=== PATIENT | male | born 1985 | race Caucasian/White ===

== ENCOUNTER 2021-09-29 22:00 | Inpatient (IN) | payer MEDICARE, MEDICAID, SELFPAY ==
[2021-09-29 22:02] VITALS: BP 136/87; PULSE 81; RESP 16; TEMP 36.7; O2SAT 94; BMI 23.8
--- NOTE | 2021-09-29 22:39 | XRR_ITS ---
PROCEDURE INFORMATION: Exam: XR Chest Exam date and time: 09/29/2021 10:39 PM Age: 36 years old Clinical indication: Patient HX: HX of sarcoidosis C/O malaise and SOB; Additional info: SOB HX sarcoidosis TECHNIQUE: Imaging protocol: XR of the chest. Views: 1 view. COMPARISON: No relevant prior studies available. FINDINGS: Lungs: Mild nonspecific diffuse coarsening of the interstitial markings. Pleural-based 2.5 cm density along the left lateral chest wall. No other focal pulmonary abnormality demonstrated. Pleural spaces: No pleural effusion. No pneumothorax. Heart/Mediastinum: No cardiomegaly. Bones/joints: Unremarkable. XR/XR chest 1V portable [id number] IMPRESSION: 1. Mild nonspecific diffuse coarsening of the interstitial markings. This may represent interstitial edema versus inflammation versus infection. 2. Pleural-based 2.5 cm density along the left lateral chest wall. This may represent a focal infiltrate versus a pleural based mass. Consider CT of the chest for further evaluation. 3. No other focal pulmonary abnormality demonstrated.
[2021-09-29 22:48] LABS: Basophils % 0.7 %; Eosinophils # 0.3 10^3/uL (0.0-0.8); Hematocrit 50.1 % (42.0-52.0); Hemoglobin 16.4 g/dL (11.7-16.6); Lymphocytes # 0.5 10^3/uL (0.8-4.8); Lymphocytes % 8.9 %; Mean Corpuscular HGB Conc 32.7 g/dL (30.0-36.0); Mean Corpuscular Hemoglobin 29.1 pg (28.0-34.0); Mean Corpuscular Volume 88.8 fl (80-94); Mean Platelet Volume 11.6 fL (7.4-10.4); Monocytes # 0.8 10^3/uL (0.2-0.9); Monocytes % 15.5 %; Neutrophils # 3.78 10^3/uL (1.8-7.7); Neutrophils % 69.7 %; Nucleated Red Blood Cells % 0 %; Platelet Count 203 10^3/cmm (130-400); Red Blood Count 5.64 10^6/uL (4.1-5.3); Red Cell Distribution Width 14.3 % (12.1-15.1); White Blood Count 5.4 10^3/uL (4.0-10.0)
[2021-09-29] MEDS: sodium chloride 0.9% 1,000 ML 999 ML IV ×2 (23:00→23:51)
[2021-09-29 23:05] LABS: Alanine Aminotransferase 30 U/L (0-41); Alkaline Phosphatase 311 IU/L (40-130); Anion Gap 17.6 (5-19); Aspartate Amino Transferase 36 U/L (0-40); Blood Urea Nitrogen 34 mg/dL (6-20); C Reactive Protein 22.5 mg/L (0.0-4.9); Calcium 13.3 mg/dL (8.5-10.5); Carbon Dioxide 26 mmol/L (22-29); Chloride 93 mmol/L (98-107); Creatine Phosphokinase 44 U/L (39-308); Globulin 3.5 g/dL (1.3-4.6); Glomerular Filtration Rate 23.2 mL/min (90-130); Glucose 100 mg/dL (65-115); Magnesium 1.7 mg/dL (1.7-2.3); Osmolality Calculated 284 mOsm/kg (285-295); Potassium 3.6 mmol/L (3.5-5.1); Sodium 133 mmol/L (136-145); Total Bilirubin 0.5 mg/dL (0.15-1.2); Total Protein 7.5 g/dL (6.6-8.7)
[2021-09-29 23:06] LABS: Erythrocyte Sedimentation Rate 23 mm/hr (0-10); Lactate (Lactic Acid level) 1.5 mmol/L (0.5-2.2)
[2021-09-29 23:51] LABS: Add Urine Microscopic? YES; Bilirubin Urine Neg (Negative); Blood Urine 2+ (Negative); Glucose Urine UA Norm (Normal); Ketones Urine Negative (Negative); Leukocyte Esterase Urine 2+ (Negative); Nitrate Urine Negative (Negative); Protein Urine 1+ (Negative); Specific Gravity, Urine 1.015 (1.005-1.030); Urine Appearance SL Hazy (CLEAR); Urine Color Yellow (Yellow); Urobilinogen Urine Norm (Negative); pH Urine 6.5 (5-7)
[2021-09-29] MEDS: heparin 5,000 unit/mL INJ 1 mL 5000 UNIT SUBCUT (23:52)
[2021-09-29 23:58] LABS: Add Urine Culture? Yes; Bacteria Urine 2+ /hpf; RBC Urine 15-25 /hpf (0-2); Squamous Epithelial Cell Urine 0-4 /hpf (0-5); WBC Urine 40-55 /hpf (0-5)
[2021-09-29 23:59] VITALS: BP 125/89; PULSE 79; RESP 18; O2SAT 98
[2021-09-30] VITALS (10 sets, daily range): BP systolic 112–144; BP diastolic 76–99; PULSE 71–93; RESP 13–16; TEMP 36.4; O2SAT 94–98
[2021-09-30] MEDS: sodium chloride 0.9% 1,000 ML 75 ML IV (00:24)
--- NOTE | 2021-09-30 01:42 | PM.HP ---
Providers/Chief Complaint Admitting Physician: Josy Torres Primary Care Provider: Aaliyah Hall Chief Complaint: NAUSEA History of Present Illness 36-year-old male with a past medical history significant for drug abuse, alcoholism now 38 days sober, sarcoidosis and chronic stage 3 kidney disease with a baseline creatinine around 2 was presented to the hospital with 3 day history of nausea and vomiting. Patient stated he has not been able to keep anything down. Denied fevers however noted chills. Was seen earlier outpatient clinic where he had COVID-19 test done which per patient was negative. Denies any respiratory distress or chest pain. Does not follow with PCP or pulmonary. Does have an upcoming appointment with nephrology. Has been on steroids in the past for sarcoidosis however no current chronic meds. Upon arrival to emergency room his laboratory workup showed a WBC of 5.4, hemoglobin 16.4, hematocrit 50.1 and a platelet count of 203. Sodium 133, potassium 3.6, chloride 93, bicarb 26, BUN 34 and a creatinine of 3.1. Calcium 13.3. Chest xray showed Mild nonspecific diffuse coarsening of the interstitial markings and pleural-based 2.5 cm density along the left lateral chest wall. This may represent a focal infiltrate versus a pleural based mass. Review of Systems Narrative: Comprehensive review of all systems found to be negative other than pertinent findings noted in HPI Medications/Allergies Home Medications Medication Instructions Recorded Confirmed Last Taken Type No Known Home Medications 07/12/20 07/12/20 Unknown History Allergies Allergy/AdvReac Type Severity Reaction Status Date / Time morphine Allergy Unknown Unknown Verified 07/12/20 11:09 PFSH Acute PFSH: Medical History (Updated 09/30/21 @ 03:35 by Josy Torres MD) Alcoholism Drug abuse No pertinent family history Sarcoidosis Surgical History (Updated 09/30/21 @ 03:35 by Josy Torres MD) H/O cervical spine surgery Vitals/I&O/Wt Last Vital Signs Temp 98.0 F 09/29/21 22:02 Pulse 79 09/29/21 23:59 Resp 18 09/29/21 23:59 BP 125/89 09/29/21 23:59 Pulse Ox 98 09/29/21 23:59 09/29/21 09/29/21 09/30/21 14:59 22:59 06:59 Intake Total 849.15 / 849.15 Balance 849.15 / 849.15 Weight last 48 hrs Weight 64.864 kg Physical Exam Narrative: General-Alert awake and oriented HEENT -grossly unremarkable CVS -regular rate rhythm Chest- clear to auscultation bilaterally Abdomen-soft nontender nondistended Extremities-no edema Data : 09/29/21 22:14 09/29/21 22:14 A&P Assessment and plan (1) Acute worsening of stage 3 chronic kidney disease: Status: Acute (2) Sarcoidosis: Status: Acute (3) Nausea & vomiting: Status: Acute (4) Abnormal finding on urinalysis: Status: Acute (5) Hypercalcemia due to granulomatous disease: Status: Acute Plan Nausea/Vomiting Possible viral gastroenteritis Zofran PRN CLD IVF with NS at 125 cc/hr May consider abdominal imaging if worsening symptoms Will check COVID19 PCR Acute on chronic stage 3 kidney disease Due to Sarcoidosis plus component of pre-renal Baseline Creatinine around 2.0 per patient Increased to 3.0 Renal dosing of meds Repeat BMP in am IVF Renal US ordered Hypercalcemia / hyperphosphatemia Related to Sarcoidosis IVF Repeat Calcium in am Prednisone 60 mg PO daily May change to IV if not able to tolerate Abnormal UA Rocephin 1g IV daily Follow up on culture Sarcoidosis with suspected acute flare Steroids as noted above Consult with rheumatology in am Will consider CT chest and pulmonary consult Hx of Alcoholism 38 days sober per patient Monitor for withdrawals Hx of Drug Abuse On suboxone No recent use per patient DVT prophylaxis Heparin 5000 units q12hr Attestations Medical Necessity Statement*: Willl Require over 2 midnight stay in hospital for evaluation and treatment Time Spent in Patient Care: Greater than 35 minutes (>than 50% of time spent in counselling and/or direct pt care on unit). Coding Level of Care Code Acute Safety Professional for Chg Fwd Diagnoses Acute worsening of stage 3 chronic kidney disease N18.30 Sarcoidosis D86.9 Nausea & vomiting R11.2 Abnormal finding on urinalysis R82.90 Hypercalcemia due to granulomatous disease E83.52
--- NOTE | 2021-09-30 02:24 | ED_ITS ---
HPI - Nausea/Vomiting/Diarrhea General: Chief complaint: ER Hold Stated complaint: NAUSEA Time Seen by Provider: 09/29/21 22:05 History of Present Illness: 36-year-old male who has been sick for several days now. He tested negative for Covid last week. He has a history of sarcoidosis. His main complaint is that of vomiting and upset stomach. He is not been able to hold much food or drink down for the last several days. He recently quit drinking alcohol, 38 days ago, and wonders if some of this could be alcohol withdrawal. Associated nausea: Yes Associated symtoms: Reports headache(s) and nausea; Denies change in vision, chest pain or palpitations Review of Systems Const: Denies: fever(s), chills or body aches Eyes: Denies: change in vision ENMT: Denies: throat pain Card: Denies: chest pain or palpitations Resp: Denies: dyspnea GI: Reports: abdominal pain, nausea and vomiting; Denies: diarrhea : Reports: difficulty urinating Musc: Reports: back pain Skin/Breast: Denies: rash Neuro: Reports: headache(s) Physical Exam HENMT: COMMON NORMALS: normocephalic and Normal external nose present HEAD & SCALP: normocephalic FACE & SINUS: normal facial exam NOSE: Normal external nose present Eye: COMMON NORMALS: Equal, round and reactive pupils present, EOMs intact bilaterally and no scleral icterus PUPIL: Yes Equal, round and reactive pupils present Cardio: COMMON NORMALS: regular rate and regular rhythm RATE: regular rate RHYTHM: regular rhythm GI: COMMON NORMALS: Normal to inspection, nondistended, normoactive bowel sounds present, Soft to palpation and non-tender PALPATION: Yes Soft to palpation Extremity: COMMON NORMALS: normal to inspection Neuro: ALE COMA SCALE: document GCS findings Ale coma scale eye opening: Spontaneous [place] coma scale verbal response: Orientated [place] coma scale motor response: Obey commands [place] coma scale total score: 15 Course Vital Signs: Vital signs: Vital Signs Temperature 98.0 F 09/29/21 22:02 Pulse Rate 79 09/29/21 23:59 Respiratory Rate 18 09/29/21 23:59 Blood Pressure 125/89 09/29/21 23:59 Pulse Oximetry 98 09/29/21 23:59 MDM - Nausea/Vomiting/Diarrhea Medical Decision Making 36-year-old male with significant increase in creatinine over baseline. CBC is normal. His white blood cell count is 5.4. Hemoglobin is 16.4. He will be admitted for acute kidney injury. Lab Data : 09/29/21 22:14 09/29/21 22:14 Radiology Impressions Chest X-Ray 09/29/21 22:39 IMPRESSION: 1. Mild nonspecific diffuse coarsening of the interstitial markings. This may represent interstitial edema versus inflammation versus infection. 2. Pleural-based 2.5 cm density along the left lateral chest wall. This may represent a focal infiltrate versus a pleural based mass. Consider CT of the chest for further evaluation. 3. No other focal pulmonary abnormality demonstrated. Laboratory Results WBC 5.4 10^3/uL (4.0-10.0) 09/29/21 22:14 RBC 5.64 10^6/uL (4.1-5.3) H 09/29/21 22:14 Hgb 16.4 g/dL (11.7-16.6) 09/29/21 22:14 Hct 50.1 % (42.0-52.0) 09/29/21 22:14 MCV 88.8 fl (80-94) 09/29/21 22:14 MCH 29.1 pg (28.0-34.0) 09/29/21 22:14 MCHC 32.7 g/dL (30.0-36.0) 09/29/21 22:14 RDW 14.3 % (12.1-15.1) 09/29/21 22:14 Plt Count 203 10^3/cmm (130-400) 09/29/21 22:14 MPV 11.6 fL (7.4-10.4) H 09/29/21 22:14 Neut % (Auto) 69.7 % 09/29/21 22:14 Lymph % (Auto) 8.9 % 09/29/21:14 [place] % (Auto) 15.5 % 09/29/21 22:14 Eos % (Auto) 5.0 % 09/29/21 22:14 Baso % (Auto) 0.7 % 09/29/21 22:14 Neut # (Auto) 3.78 10^3/uL (1.8-7.7) 09/29/21:14 Lymph # (Auto) 0.5 10^3/uL (0.8-4.8) L 09/29/21 22:14 [place] # (Auto) 0.8 10^3/uL (0.2-0.9) 09/29/21 22:14 Eos # (Auto) 0.3 10^3/uL (0.0-0.8) 09/29/21 22:14 Baso # (Auto) 0.0 10^3/uL (0.0-0.1) 09/29/21 22:14 Nucleated RBC % (auto) 0 % 09/29/21 22:14 Nucleated RBCs # 0.0 /100WBC 09/29/21 22:14 ESR 23 mm/hr (0-10) H 09/29/21 22:14 Sodium 133 mmol/L (136-145) L 09/29/21 22:14 Potassium 3.6 mmol/L (3.5-5.1) 09/29/21 22:14 Chloride 93 mmol/L (98-107) L 09/29/21 22:14 Carbon Dioxide 26 mmol/L (22-29) 09/29/21 22:14 Anion Gap 17.6 (5-19) 09/29/21 22:14 BUN 34 mg/dL (6-20) H 09/29/21 22:14 Creatinine 3.1 mg/dL (0.7-1.2) H 09/29/21 22:14 GFR Calculation 23.2 mL/min (90-130) L 09/29/21 22:14 Glucose 100 mg/dL (65-115) 09/29/21 22:14 Calculated Osmolality 284 mOsm/kg (285-295) L 09/29/21 22:14 Lactate 1.5 mmol/L (0.5-2.2) 09/29/21 22:14 Calcium 13.3 mg/dL (8.5-10.5) H 09/29/21 22:14 Phosphorus 5.0 mg/dL (2.5-4.5) H 09/29/21 22:14 Magnesium 1.7 mg/dL (1.7-2.3) 09/29/21 22:14 Total Bilirubin 0.5 mg/dL (0.15-1.2) 09/29/21 22:14 AST 36 U/L (0-40) 09/29/21 22:14 ALT 30 U/L (0-41) 09/29/21 22:14 Alkaline Phosphatase 311 IU/L (40-130) H 09/29/21 22:14 Creatine Kinase 44 U/L (39-308) 09/29/21 22:14 C-Reactive Protein 22.5 mg/L (0.0-4.9) H 09/29/21 22:14 Total Protein 7.5 g/dL (6.6-8.7) 09/29/21 22:14 Albumin 4.0 g/dL (3.5-5.2) 09/29/21 22:14 Globulin 3.5 g/dL (1.3-4.6) 09/29/21 22:14 Procalcitonin 0.30 ng/mL (0-0.5) 09/29/21 22:14 Urine Color Yellow (Yellow) 09/29/21 23:33 Urine Appearance Sl hazy (CLEAR) 09/29/21 23:33 Urine pH 6.5 (5-7) 09/29/21 23:33 Ur Specific [place] 1.015 (1.005-1.030) 09/29/21 23:33 Urine Protein 1+ (Negative) H 09/29/21 23:33 Urine Glucose (UA) Norm (Normal) 09/29/21 23:33 Urine Ketones Negative (Negative) 09/29/21 23:33 Urine Blood 2+ (Negative) H 09/29/21 23:33 Urine Nitrate Negative (Negative) 09/29/21 23:33 Urine Bilirubin Neg (Negative) 09/29/21 23:33 Urine Urobilinogen Norm mg/dL (Negative) 09/29/21 23:33 Ur Leukocyte Esterase 2+ (Negative) H 09/29/21 23:33 Urine RBC 15-25 /hpf (0-2) H 09/29/21 23:33 Urine WBC 40-55 /hpf (0-5) H 09/29/21 23:33 Ur Squamous Epith Cells 0-4 /hpf (0-5) H 09/29/21 23:33 Amorphous Sediment Not Reportable 09/29/21 23:33 Urine Bacteria 2+ /hpf (NONE) H 09/29/21 23:33 Discharge Plan Discharge Admit Provider: Josy Torres Condition: Stable Coding Level of Care Code ED Wind Farm Operations Manager for Chg Chey
--- NOTE | 2021-09-30 03:27 | USR_ITS ---
PROCEDURE INFORMATION: Exam: US Retroperitoneal; Complete; Kidneys and Bladder Exam date and time: 09/30/2021 3:27 AM Age: 36 years old Clinical indication: Acute on chronic renal insufficiency. TECHNIQUE: Imaging protocol: Real-time ultrasound of the retroperitoneum with image documentation. Complete exam focused on the kidneys and bladder. COMPARISON: No relevant prior studies available. FINDINGS: The right kidney measures 10.6 x 4.0 x 4.1 cm. No suspicious mass or hydronephrosis. There appears to be renal cortical thinning. The renal pyramids appear echogenic. The left kidney measures 10.8 x 4.8 x 5.3 cm. No suspicious mass or hydronephrosis. The visualized abdominal aorta is normal in caliber. There appears to be renal cortical thinning. The renal pyramids appear echogenic. The IVC was not imaged. A single transverse view of the bladder is grossly unremarkable. Possible echogenic lesion in the liver measuring 1.8 x 0.6 cm. US/US renal BI* [id number] IMPRESSION: 1. The renal pyramids appear echogenic, bilaterally, which may reflect medullary nephrocalcinosis. 2. There appears to be renal cortical thinning bilaterally. 3. No hydronephrosis. 4. Possible echogenic lesion in the liver. Recommend right upper quadrant ultrasound to further assess.
[2021-09-30] MEDS: cefTRIAXone 1,000 MG in sodium chloride 0.9% (plus) 50 ML 100 MG IV (04:00)
[2021-09-30 04:02] LABS: Basophils % 0.8 %; Eosinophils # 0.3 10^3/uL (0.0-0.8); Eosinophils % 8.5 %; Hemoglobin 13.8 g/dL (11.7-16.6); Lymphocytes # 0.5 10^3/uL (0.8-4.8); Lymphocytes % 12.5 %; Mean Corpuscular HGB Conc 32.9 g/dL (30.0-36.0); Mean Corpuscular Hemoglobin 29.2 pg (28.0-34.0); Mean Corpuscular Volume 88.8 fl (80-94); Mean Platelet Volume 11.7 fL (7.4-10.4); Monocytes # 0.6 10^3/uL (0.2-0.9); Monocytes % 17.1 %; Neutrophils # 2.28 10^3/uL (1.8-7.7); Neutrophils % 60.8 %; Nucleated Red Blood Cells % 0 %; Platelet Count 186 10^3/cmm (130-400); Red Blood Count 4.73 10^6/uL (4.1-5.3); Red Cell Distribution Width 14.2 % (12.1-15.1); White Blood Count 3.8 10^3/uL (4.0-10.0)
[2021-09-30 04:40] LABS: Anion Gap 15.9 (5-19); Blood Urea Nitrogen 31 mg/dL (6-20); C Reactive Protein 16.1 mg/L (0.0-4.9); Calcium 11.3 mg/dL (8.5-10.5); Carbon Dioxide 22 mmol/L (22-29); Chloride 102 mmol/L (98-107); Glucose 92 mg/dL (65-115); Osmolality Calculated 288 mOsm/kg (285-295); Potassium 3.9 mmol/L (3.5-5.1); Sodium 136 mmol/L (136-145)
[2021-09-30 06:00] LABS: Adenovirus Not Detected (NOT DETECT); Chlamydia Pneumoniae Not Detected (NOT DETECT); Coronavirus 229E,HKU1,NL63,OC4 Not Detected (NOT DETECT); Human Metapneumovirus Not Detected (NOT DETECT); Human Rhinovirus/Enterovirus Not Detected (NOT DETECT); Influenza A Not Detected (NOT DETECT); Influenza A H1 Not Detected (NOT DETECT); Influenza A H1-2009 Not Detected (NOT DETECT); Influenza A H3 Not Detected (NOT DETECT); Influenza B Not Detected (NOT DETECT); Mycoplasma Pneumoniae Not Detected (NOT DETECT); Parainfluenza Virus Type 1 Not Detected (NOT DETECT); Parainfluenza Virus Type 2 Not Detected (NOT DETECT); Parainfluenza Virus Type 3 Not Detected (NOT DETECT); Parainfluenza Virus Type 4 Not Detected (NOT DETECT); Respiratory Syncytial Virus A Not Detected (NOT DETECT); Respiratory Syncytial Virus B Not Detected (NOT DETECT); SARS-COV-2 Not Detected (NOT DETECT)
--- NOTE | 2021-09-30 08:34 | PC.NURSE ---
1000 mL of urine emptied
[2021-09-30] MEDS: predniSONE 20 mg Tablet 60 MG PO (08:58)
[2021-09-30] MEDS: pantoprazole DR 40 mg Tablet PO (09:00)
[2021-09-30] MEDS: sodium chloride 0.9% 1,000 ML 150 ML IV ×3 (09:02→19:15)
--- NOTE | 2021-09-30 09:12 | PC.NURSE ---
Pt states he does have some nausea but states its not bad .
--- NOTE | 2021-09-30 10:35 | PC.CHAP ---
Pastoral Care Encounter/Spiritual Assessment Type of Contact [] Declined flight security specialist visit [] Patient/Family/Request visit [] Outpatient visit [] Follow-up visit [] Physician referral [] Code/Alert [X] Routine visit [] Staff referral [] Actively dying [] Patient sleeping [] Family support [] [] Out of room [] Palliative care [] [] Receiving care in room [] Pre-surgical visit [] Trauma [] Long length of stay [] ICU visit [X] Other: Pt not yet arrived from ED Relational/Emotional Strength [] Patient feels connected with others/family/visitors/staff [] Distress [] Loneliness/isolation [] Abandonment Spirituality of Patient [] Person of Maya [] Attends Hindu of their Maya [] Believes in Prayer [] Reads Bible or Jehovah'S Witness materials [] There are Spiritual issues to be addressed Smoked Meat Preparer Interventions [] Prayer [] Active listening [] Non-anxious presence [] Spiritual/emotional support [] Crisis/trauma care [] Spiritual counseling [] Bereavement support [] Provided bereavement packet [] Provided Bible/devotional materials [] Provided toy/stuffed animal, coloring book to patient or family member [] Provided Communion [] Anointing/[place] [] Salvation [] Completed spiritual assessment [] Other: Impact on Illness or Injury [] Angry [] Fearful [] Anxious [] Often cries [] Exhaustion [] Unable to work [] Unable to attend jehovah's witness [] Unable to walk/stand [] Unable to read [] Unable to drive [] Unable to eat/drink [] Unable to sleep [] Unable to be with family [] Patient intubated [] Other: Summary Time spent with patient
--- NOTE | 2021-09-30 10:47 | PC.NURSE ---
Patient arrived from ER via wheelchair. Report was received prior to patient arrival. Patient is alert and oriented x4. Patient does not have any nausea or vomiting present at this time and is not experiencing any pain. Patient has been oriented to room and use of call martell.
--- NOTE | 2021-09-30 11:05 | PC.NURSE ---
spoke with Dr. Jang about patient concerns of not taking home dose of Buprenorphine-naloxone confirmed dose with pharmacy and patient instructions received to resume home dose of buprenorphine-naloxone 4-1mg TID sublingual
[2021-09-30] MEDS: heparin 5,000 unit/mL INJ 1 mL 5000 UNIT SUBCUT ×2 (11:10→23:03)
--- NOTE | 2021-09-30 11:10 | PM.CONSULT ---
Providers/Reason For Consult Consulting Physician/Specialty*: Leesa Thorne DO, telenephrology Reason for Consult*: Acute kidney injury, hypercalcemia, chronic kidney disease Requesting Physician: Zaire Jang MD Attending Physician: Zaire Jang MD Primary Care Provider: Aaliyah Hall History of Present Illness History of Present Illness Jean Pierre Bolanos is a 36 year old male presenting for evaluation. He has felt very ill for a few weeks. + dizziness, nausea, not himself Reports CKD due to sarcoid. Baseline serum Cr 2.0 mg/dL. Hypercalcemia due to sarcoid for many years. Does not want to take steroids. 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 No new medications. Takes ibuprofen alternating with acetaminophen for pain. Review of Systems Card: Denies: chest pain Resp: Denies: dyspnea : Reports: flank pain, oliguria and other (urine is dark) Medications/Allergies Home Medications Medication Instructions Recorded Confirmed Last Taken Type amlodipine 2.5 mg tablet 2.5 mg PO DAILY 09/30/21 09/30/21 09/29/21 History buprenorphine 4 mg-naloxone 1 mg 1 film SUBLINGUAL BID 09/30/21 09/30/21 09/29/21 History sublingual film lisinopril 20 mg tablet 20 mg PO BID 09/30/21 09/30/21 09/29/21 History lorazepam 0.5 mg tablet 0.5 mg PO Q8H PRN 09/30/21 09/30/21 09/29/21 History ondansetron 4 mg disintegrating 4 mg PO TID 09/30/21 09/30/21 09/29/21 History tablet prednisolone acetate 1 % eye 1 drp OPHTHALMIC (EYE) Q2H 09/30/21 09/30/21 09/29/21 History drops,suspension sertraline 25 mg tablet (Zoloft) 25 mg PO DAILY 09/30/21 09/30/21 09/29/21 History Allergies Allergy/AdvReac Type Severity Reaction Status Date / Time morphine Allergy Unknown Unknown Verified 09/30/21 08:41 Current Medications Generic Name Dose Route Start Last Admin Trade Name Freq PRN Reason Stop Dose Admin Heparin Sodium (Porcine) 5,000 unit 09/29/21 23:30 09/29/21 23:52 Heparin 5,000 Unit/Ml Inj 1 Ml SUBCUT 5,000 unit Q12H RICO Administration Sodium Chloride 1,000 mls @ 150 mls/hr 09/29/21 23:30 09/30/21 09:02 Sodium Chloride 0.9% IV 150 mls/hr .Q6H40M RICO Administration Ceftriaxone Sodium 1,000 mg/ 50 mls @ 100 mls/hr 09/30/21 03:30 09/30/21 04:00 Sodium Chloride IV 100 mls/hr Q24H RICO Administration Protocol Pantoprazole Sodium 40 mg 09/30/21 09:00 09/30/21 09:[address] 40 Mg Tablet PO 40 mg DAILY RICO Administration Prednisone 60 mg 09/30/21 09:00 09/30/21 08:58 Prednisone 20 Mg Tablet PO 60 mg DAILY RICO Administration PFSH Acute PFSH: Medical History Alcoholism Drug abuse No pertinent family history Sarcoidosis Surgical History H/O cervical spine surgery Vitals/I&O/Wt Last Vital Signs Temp 98.0 F 09/29/21 22:02 Pulse 71 09/30/21 08:31 Resp 14 09/30/21 10:41 BP 112/76 09/30/21 10:41 Pulse Ox 97 09/30/21 08:31 09/29/21 09/30/21 09/30/21 22:59 06:59 14:59 Intake Total 2095.40 / 2095.40 753.75 / 753.75 Balance 2095.40 / 2095.40 753.75 / 753.75 Weight last 48 hrs Weight 64.864 kg Physical Exam Const: COMMON NORMALS: no acute distress Eye: COMMON NORMALS: no scleral icterus Extremity: COMMON NORMALS: no pedal edema Psych: COMMON NORMALS: normal affect Data : 09/30/21 03:55 09/30/21 04:13 Other Labs: serum calcium 13.3 - improved to 11.3 with hydration phos 5 Mg 1.7 ALP 311 - likely bone source urinalysis with many WBC, RBC CK 44 US: Radiologist's impression: ?The right kidney measures 10.6 x 4.0 x 4.1 cm. ?No suspicious mass or hydronephrosis. There appears to be renal cortical thinning. The renal pyramids appear echogenic. ?The left kidney measures 10.8 x 4.8 x 5.3 cm. ?No suspicious mass or hydronephrosis. ?The visualized abdominal aorta is normal in caliber. There appears to be renal cortical thinning. The renal pyramids appear echogenic. A&P Assessment and plan (1) Urinary tract infection: Status: Acute Plan Seen via telemedicine with assistance of RN at bedside 1. Acute kidney injury associated with hypercalcemia, both improving with hydration 2. Patient reports CKD with baseline serum Cr 2.0 mg/dL and hypercalcemia for years due to sarcoid 3. UTI 4. History of hypertension - BP low here Recommend: agree with hydration with NSS. Hold ACEi. Check PTH and 25(OH)D. U/A C&S, receiving IV rocephin Consult Attestations Medical Necessity Statement: requires IV fluids Time Spent in Patient Care: 16 - 35 minutes Coding Level of Care Code Acute Community Association Manager for Sreedhar Guerrier Diagnoses Urinary tract infection N39.0
[2021-09-30] MEDS: magnesium sulfate premix 2 GM/50 ML PIGGYBACK IV (11:11)
[2021-09-30] MEDS: buprenorphine-naloxone 4-1 mg Film 1 EACH SUBLINGUAL ×2 (11:11→19:14)
--- NOTE | 2021-09-30 11:56 | CTR_ITS ---
PROCEDURE INFORMATION: Exam: CT Abdomen And Pelvis Without Contrast Exam date and time: 09/30/2021 11:56 AM Age: 36 years old Clinical indication: Right upper quadrant abdominal pain. Nausea and vomiting. History of stage 3 renal failure and sarcoidosis. TECHNIQUE: Imaging protocol: Computed tomography of the abdomen and pelvis without contrast. Radiation optimization: All CT scans at this facility use at least one of these dose optimization techniques: automated exposure control; mA and/or kV adjustment per patient size (includes targeted exams where dose is matched to clinical indication); or iterative reconstruction. COMPARISON: US renal BI* [id number] 09/30/2021 7:43 AM RADIATION DOSE METRICS: Total DLP (mGy-cm): 1062.48 FINDINGS: Lungs: There is extensive ground-glass opacity at the lung bases. The heart is enlarged. Epicardial lymph nodes are noted. An epicardial lymph node measures 1.0 x 1.6 cm. No hiatal hernia. Trace left pleural effusion. Liver: The liver is enlarged measuring 21 cm. Gallbladder and bile ducts: Nonspecific prominence of the gallbladder wall. The gallbladder is partially decompressed. No stone is seen. Pancreas: The pancreas is unremarkable. Spleen: The spleen is enlarged measuring 16.5 cm. Adrenal glands: The adrenal glands are unremarkable. Kidneys and ureters: There is extensive calcification within the medullary pyramids raising concern for medullary nephrocalcinosis. Simple renal cysts measure up to 2.1 cm. No hydronephrosis. Stomach and bowel: The stomach and small bowel are unremarkable. Moderate stool in the colon; query constipation. Appendix: The appendix is not identified. Intraperitoneal space: No free intraperitoneal air is seen. Mild simple free pelvic fluid. Vasculature: No abdominal aortic aneurysm. Lymph nodes: A celiac axis lymph node measures 1.7 x 3.9 cm. A periportal lymph node measures 2.0 x 2.9 cm. An aortocaval lymph node measures 1.2 x 3.0 cm. A right external iliac lymph node measures 1.0 x 1.6 cm. Urinary bladder: The bladder wall is mildly thickened. A small bladder stone is noted. Reproductive: The prostate measures 3.3 x 3.8 cm. Bones/joints: No acute fracture is seen. Soft tissues: Small fat containing umbilical hernia. CT/CT abdomen pelvis wo con [id number] IMPRESSION: 1. Moderate stool in the colon; query constipation. 2. Nonspecific prominence of the gallbladder wall. The gallbladder is partially decompressed. No stone is seen. 3. Hepatosplenomegaly with periportal, retroperitoneal, right pelvic and epicardial lymphadenopathy. 4. There is extensive calcification within the medullary pyramids raising concern for medullary nephrocalcinosis. 5. The bladder wall is mildly thickened. Considerations include partial bladder outlet obstruction or cystitis. Correlate with urinalysis. A small bladder stone is noted. 6. Extensive ground-glass opacity at the lung bases. Recommend high-resolution CT chest interstitial protocol to better characterize. 7. Cardiomegaly. 8. Minimal ascites. 9. Trace left pleural effusion. COMMENTS: Consistent with the [employer]'s Incidental Findings Committee white paper (J Am Ramos Radiol 2018): Any incidental renal lesion less than 1 cm or classified as too small to characterize, or any incidental cystic renal lesion characterized as simple-appearing, is likely benign. No follow-up imaging is recommended for these lesions per consensus recommendations based on imaging criteria.
--- NOTE | 2021-09-30 11:59 | PC.NURSE ---
Physician Orders Diet order may be advanced from clear liquids to cardiac diet.
[2021-09-30 12:11] LABS: Magnesium 1.7 mg/dL (1.7-2.3)
[2021-09-30 12:15] LABS: Alcohol Level < 10 mg/dL (0-10)
[2021-09-30 12:18] LABS: Amphetamines Screen Urine Negative (Negative); Barbiturates Screen Urine Negative (Negative); Benzodiazepines Screen Urine Positive (Negative); Cocaine Screen Urine Negative (Negative); Opiate Screen Urine Negative (Negative); PCP Screen Urine Negative (Negative); THC Screen Urine Negative (Negative)
--- NOTE | 2021-09-30 13:46 | PC.NURSE ---
spoke with Dr. simmons with concerns patient was found to have mediations at bedside and had been self administering prednisone 1% eye drops every 2 hours while awake
[2021-09-30 14:33] LABS: Hepatitis A Antibody IgM Non-Reactive (Nonreactive); Hepatitis B Core IgM Non-Reactive (Nonreactive); Hepatitis B Surface Antigen Non-Reactive (Nonreactive); Hepatitis C Virus Antibody Non-Reactive (Nonreactive)
[2021-09-30 15:03] LABS: Calcium 12.2 mg/dL (8.5-10.5)
[2021-09-30 15:09] LABS: HIV 1 & 2 Antibody Non-Reactive (Non-Reactiv); HIV 1 & 2 Antigen Non-Reactive (Non-Reactiv); Parathyroid Hormone 5.9 pg/mL (15-65)
--- NOTE | 2021-09-30 16:16 | P.PN_ITS ---
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, was diagnosed with sarcoidosis on biopsy when he 19 years old, was on steroids at one point, but has been stopped taking it for a year, due to extensive weight gain, he has not seen a nephro logist in a long time, but he supposed to see 1 in the next week, he reports nausea, does report right upper quadrant pain, no dysuria, no hematuria, history of drug use in the remote past, last alcohol drink was over a month ago Vitals/I&O/Wt Last Vital Signs Temp 98.0 F 09/29/21 22:02 Pulse 87 09/30/21 14:15 Resp 14 09/30/21 14:15 BP 118/81 09/30/21 14:15 Pulse Ox 98 09/30/21 14:15 09/30/21 09/30/21 09/30/21 06:59 14:59 22:59 Intake Total 2095.40 / 2095.40 853.75 / 853.75 Output Total 300 / 300 700 / 1000 Balance 2095.40 / 2095.40 553.75 / 553.75 -700 / -146.25 Weight last 48 hrs Weight 64.864 kg Weight 64.864 kg Physical Exam Const: COMMON NORMALS: no acute distress and patient oriented x3 Resp: COMMON NORMALS: normal respiratory effort, No retractions, No use of accessory muscles and clear to auscultation bilaterally AUSCULTATION: clear to auscultation bilaterally Cardio: COMMON NORMALS: regular rate, regular rhythm, S1 normal heart sound present and S2 normal heart sound present RATE: regular rate RHYTHM: regular rhythm HEART SOUNDS: S1 normal heart sound present and S2 normal heart sound present GI: COMMON NORMALS: Normal to inspection, nondistended, normoactive bowel sounds present, Soft to palpation, non-tender, No hepatosplenomegaly present and no masses PALPATION: Yes Soft to palpation and Yes No hepatosplenomegaly present Extremity: COMMON NORMALS: no pedal edema Neuro: COMMON NORMALS: patient oriented x3 Data : 09/30/21 03:55 09/30/21 04:13 Micro: Microbiology 09/30/21 13:43 Blood Culture - Preliminary Blood SPECIMEN COLLECTED 09/30/21 11:11 Blood Culture - Preliminary Blood SPECIMEN COLLECTED A&P Assessment and plan (1) Acute worsening of stage 3 chronic kidney disease: Status: Acute (2) Sarcoidosis: Status: Acute (3) Nausea & vomiting: Status: Acute (4) Abnormal finding on urinalysis: Status: Acute (5) Hypercalcemia due to granulomatous disease: Status: Acute Plan Nausea/Vomiting Possible viral gastroenteritis Zofran PRN CLD IVF with NS at 125 cc/hr Given right upper quadrant pain, will order CT scan abdomen pelvis Covid PCR negative Acute on chronic stage 3 kidney disease Due to Sarcoidosis, nephrocalcinosis plus component of pre-renal Baseline Creatinine around 2.0 per patient Increased to 3.0 Renal dosing of meds Repeat BMP in am IVF Renal US ordered Hypercalcemia / hyperphosphatemia Related to Sarcoidosis IVF Repeat Calcium in am Prednisone 60 mg PO daily May change to IV if not able to tolerate Abnormal UA Rocephin 1g IV daily Follow up on culture Sarcoidosis with suspected acute flare Steroids as noted above Consult with rheumatology in am Will consider CT chest and pulmonary consult Hx of Alcoholism 38 days sober per patient Monitor for withdrawals Hx of Drug Abuse On suboxone No recent use per patient DVT prophylaxis Heparin 5000 units q12hr Attestations Medical Necessity Statement*: Patient requires hospitalization on MEDHAT CKD, hypercalcemia, sarcoidosis Coding Level of Care Code Acute Military Personnel Specialist for [facility] Fwd Diagnoses Acute worsening of stage 3 chronic kidney disease N18.30 Sarcoidosis D86.9 Nausea & vomiting R11.2 Abnormal finding on urinalysis R82.90 Hypercalcemia due to granulomatous disease E83.52
[2021-09-30 16:17] LABS: 25 Hydroxy Vitamin D 5 ng/mL (30-100)
[2021-09-30 17:07] LABS: Thyroid Stimulating Hormone 1.27 uIU/mL (0.27-4.20)
--- NOTE | 2021-09-30 17:20 | PC.NURSE ---
Addendum entered by Susana Stone RN 09/30/21 17:21: ok to restart home dose Original Note: Spoke with Dr simmons with patient concerns of restarting home dose of lorazapam 0.5mg po Q8h
--- NOTE | 2021-09-30 19:15 | PC.NURSE ---
This Rn agrees with all documentation and medication administration preformed by assistant chief nursing officer Peg Santiago
[2021-09-30] MEDS: LORazepam 0.5 mg Tablet PO (19:19)
--- NOTE | 2021-09-30 22:57 | PC.NURSE ---
Patient states, I'm supposed to use my eyedrops every 2 hours, but I've only been using them once or twice a day.
--- NOTE | 2021-09-30 23:00 | PC.NURSE ---
Patient c/o dizziness. Patient states, they told me the dizziness is because my numbers are all out of wack.
[2021-10-01] VITALS (9 sets, daily range): BP systolic 128–153; BP diastolic 88–111; PULSE 66–98; RESP 16–22; TEMP 36.5–36.8; O2SAT 92–98
[2021-10-01] MEDS: sodium chloride 0.9% 1,000 ML 150 ML IV ×3 (05:34→20:06)
[2021-10-01] MEDS: cefTRIAXone 1,000 MG in sodium chloride 0.9% (plus) 50 ML 100 MG IV (05:34)
[2021-10-01] MEDS: LORazepam 0.5 mg Tablet PO ×3 (05:47→22:13)
[2021-10-01] MEDS: buprenorphine-naloxone 4-1 mg Film 1 EACH SUBLINGUAL ×3 (05:47→20:05)
[2021-10-01 05:58] LABS: Basophils % 0.2 %; Hemoglobin 13.6 g/dL (11.7-16.6); Lymphocytes # 0.4 10^3/uL (0.8-4.8); Lymphocytes % 6.3 %; Mean Corpuscular HGB Conc 32.4 g/dL (30.0-36.0); Mean Corpuscular Hemoglobin 29.1 pg (28.0-34.0); Mean Corpuscular Volume 89.7 fl (80-94); Mean Platelet Volume 11.8 fL (7.4-10.4); Monocytes # 0.6 10^3/uL (0.2-0.9); Monocytes % 10.1 %; Neutrophils # 4.87 10^3/uL (1.8-7.7); Neutrophils % 83.1 %; Nucleated Red Blood Cells % 0 %; Platelet Count 201 10^3/cmm (130-400); Red Blood Count 4.68 10^6/uL (4.1-5.3); Red Cell Distribution Width 14.2 % (12.1-15.1); White Blood Count 5.9 10^3/uL (4.0-10.0)
[2021-10-01 06:45] LABS: Alanine Aminotransferase 27 U/L (0-41); Albumin Level 3.5 g/dL (3.5-5.2); Alkaline Phosphatase 295 IU/L (40-130); Anion Gap 17.3 (5-19); Aspartate Amino Transferase 34 U/L (0-40); Blood Urea Nitrogen 32 mg/dL (6-20); Calcium 11.8 mg/dL (8.5-10.5); Carbon Dioxide 19 mmol/L (22-29); Chloride 105 mmol/L (98-107); Glomerular Filtration Rate 29.7 mL/min (90-130); Glucose 126 mg/dL (65-115); Magnesium 1.8 mg/dL (1.7-2.3); Osmolality Calculated 292 mOsm/kg (285-295); Phosphorus 4.6 mg/dL (2.5-4.5); Potassium 4.3 mmol/L (3.5-5.1); Sodium 137 mmol/L (136-145); Total Bilirubin 0.3 mg/dL (0.15-1.2); Total Protein 6.5 g/dL (6.6-8.7)
[2021-10-01] MEDS: ondansetron 2 mg/ML SDV 2 mL 4 MG IVP (07:05)
[2021-10-01] MEDS: pantoprazole DR 40 mg Tablet PO (08:19)
[2021-10-01] MEDS: predniSONE 20 mg Tablet 60 MG PO (08:19)
[2021-10-01] MEDS: acetaminophen 325 mg Tablet 650 MG PO (08:24)
--- NOTE | 2021-10-01 08:27 | PM.PN ---
Subjective Subjective: feeling better. urine clear yellow Medications: Reviewed: Yes Vitals/I&O/Wt Last Vital Signs Temp 98.2 F 10/01/21 04:00 Pulse 78 10/01/21 04:00 Resp 18 10/01/21 04:00 BP 128/88 10/01/21 04:00 Pulse Ox 92 10/01/21 04:00 09/30/21 10/01/21 10/01/21 22:59 06:59 14:59 Intake Total 1762.5 / 2616.25 1550 / 4166.25 Output Total 1550 / 1850 2000 / 3850 Balance 212.5 / 766.25 -450 / 316.25 Weight last 48 hrs Weight 64.864 kg Weight 64.864 kg Physical Exam Const: COMMON NORMALS: no acute distress Extremity: COMMON NORMALS: no pedal edema Data : 10/01/21 05:20 10/01/21 05:20 Other Labs: Ca 11.8, PTH 5.9 Micro: Microbiology 09/30/21 13:43 Blood Culture - Preliminary Blood SPECIMEN COLLECTED 09/30/21 11:11 Blood Culture - Preliminary Blood SPECIMEN COLLECTED A&P Assessment and plan (1) Hypercalcemia due to granulomatous disease: Status: Acute Plan Seen via telemedicine with assistance of RN at bedside 1. Acute kidney injury associated with hypercalcemia - both improved with hydration 2. Patient reports CKD with baseline serum Cr 2.0 mg/dL and hypercalcemia for years due to sarcoid 3. UTI - urine culture results not available, receiving IV rocephin 4. Hypertension - resume amlodipine Recommend: continue hydration with NSS. IV pamidronate 45 mg over 4h. Consider discharge tomorrow if stable Attestations Medical Necessity Statement*: see above Time Spent in Patient Care: 16 - 35 minutes Coding Level of Care Code Acute Failure Analysis Technician for [facility]errier Diagnoses Hypercalcemia due to granulomatous disease E83.52
--- NOTE | 2021-10-01 09:38 | PC.NURSE ---
Around 0830: Verbal orders received from Dr. Jang, see orders.
--- NOTE | 2021-10-01 10:29 | PC.CHAP ---
Pastoral Care Encounter/Spiritual Assessment Type of Contact [] Declined prescription benefit specialist visit [] Patient/Family/Request visit [] Outpatient visit [X] Follow-up visit [] Physician referral [] Code/Alert [] Routine visit [] Staff referral [] Actively dying [] Patient sleeping [] Family support [] [] Out of room [] Palliative care [] [] Receiving care in room [] Pre-surgical visit [] Trauma [] Long length of stay [] ICU visit [X] Other: pt on phone Relational/Emotional Strength [] Patient feels connected with others/family/visitors/staff [] Distress [] Loneliness/isolation [] Abandonment Spirituality of Patient [] Person of Maya [] Attends Hinduism of their Amya [] Believes in Prayer [] Reads Bible or Oriental Orthodox materials [] There are Spiritual issues to be addressed Mechanical Adjuster Interventions [] Prayer [] Active listening [] Non-anxious presence [] Spiritual/emotional support [] Crisis/trauma care [] Spiritual counseling [] Bereavement support [] Provided bereavement packet [] Provided Bible/devotional materials [] Provided toy/stuffed animal, coloring book to patient or family member [] Provided Communion [] Anointing/Cato [] Salvation [] Completed spiritual assessment [] Other: Impact on Illness or Injury [] Angry [] Fearful [] Anxious [] Often cries [] Exhaustion [] Unable to work [] Unable to attend confucianist [] Unable to walk/stand [] Unable to read [] Unable to drive [] Unable to eat/drink [] Unable to sleep [] Unable to be with family [] Patient intubated [] Other: Summary Time spent with patient
[2021-10-01] MEDS: heparin 5,000 unit/mL INJ 1 mL 5000 UNIT SUBCUT ×2 (12:10→22:13)
--- NOTE | 2021-10-01 12:32 | P.PN_ITS ---
Subjective Subjective: Denies any abdominal pain complaints, denies any muscle weakness today, no chest pain, no flank pain, he feels better, he is hesitant about going home as his calcium levels remain elevated, he does not want to take steroids due to concerns for weight gain in the past, steroid induced psychosis Vitals/I&O/Wt Last Vital Signs Temp 98.0 F 10/01/21 08:00 Pulse 81 10/01/21 08:00 Resp 18 10/01/21 08:00 BP 153/93 10/01/21 08:00 Pulse Ox 98 10/01/21 08:00 09/30/21 10/01/21 10/01/21 22:59 06:59 14:59 Intake Total 1762.5 / 2616.25 1550 / 4166.25 1420 / 1420 Output Total 1550 / 1850 2000 / 3850 500 / 500 Balance 212.5 / 766.25 -450 / 316.25 920 / 920 Weight last 48 hrs Weight 64.864 kg Weight 64.864 kg Physical Exam Const: COMMON NORMALS: no acute distress and patient oriented x3 Resp: COMMON NORMALS: normal respiratory effort, No retractions, No use of accessory muscles and clear to auscultation bilaterally AUSCULTATION: clear to auscultation bilaterally Cardio: COMMON NORMALS: regular rate, regular rhythm, S1 normal heart sound present and S2 normal heart sound present RATE: regular rate RHYTHM: regular rhythm HEART SOUNDS: S1 normal heart sound present and S2 normal heart sound present GI: COMMON NORMALS: Normal to inspection, nondistended, normoactive bowel sounds present, Soft to palpation, non-tender and No hepatosplenomegaly present PALPATION: Yes Soft to palpation and Yes No hepatosplenomegaly present Extremity: COMMON NORMALS: no pedal edema Neuro: COMMON NORMALS: patient oriented x3 Data : 10/01/21 05:20 10/01/21 05:20 Micro: Microbiology 09/30/21 11:11 Blood Culture - Preliminary Blood NEGATIVE TO DATE 09/29/21 23:33 Urine Culture - Preliminary Urine,Clean Catch 09/30/21 13:43 Blood Culture - Preliminary Blood SPECIMEN COLLECTED A&P Assessment and plan (1) Hypercalcemia due to granulomatous disease: Status: Acute (2) Sarcoidosis: Status: Acute (3) Urinary tract infection: Status: Acute (4) Acute worsening of stage 3 chronic kidney disease: Status: Acute (5) Nausea & vomiting: Status: Acute (6) Abnormal finding on urinalysis: Status: Acute Plan Nausea/Vomiting/weakness/lightheadedness Possible viral gastroenteritis, hypercalcemia Zofran PRN Advance to cardiac diet IVF with NS at 150 cc an hour Covid PCR negative Acute on chronic stage 3 kidney disease Due to Sarcoidosis, nephrocalcinosis plus component of pre-renal Baseline Creatinine around 2.0 per patient Now 2.5 Renal dosing of meds Repeat BMP in am IVF Renal US ordered Hypercalcemia / hyperphosphatemia Related to Sarcoidosis IVF Repeat Calcium in am Prednisone 40 mg PO daily, slowly de-escalate Calcium remains 11.8, elevated ionized calcium, will give 1 dose of pamidronate Abnormal UA Rocephin 1g IV daily Follow up on culture Sarcoidosis with suspected acute flare Steroids as noted above We will have patient follow-up with rheumatology as outpatient Have patient follow-up with pulmonary as outpatient given evidence of pulmonary sarcoidosis Likely discharge on steroid taper with close follow-up with pulmonary and rheumatology Hx of Alcoholism 38 days sober per patient Monitor for withdrawals Hx of Drug Abuse On suboxone No recent use per patient DVT prophylaxis Heparin 5000 units q12hr Attestations Medical Necessity Statement*: Patient requires hospitalization for hypercalcemia, MEDHAT Coding Level of Care Code Acute Freight Car Cleaner for g Fwd Diagnoses Hypercalcemia due to granulomatous disease E83.52 Sarcoidosis D86.9 Urinary tract infection N39.0 Acute worsening of stage 3 chronic kidney disease N18.30 Nausea & vomiting R11.2 Abnormal finding on urinalysis R82.90
[2021-10-01 13:47] LABS: Alanine Aminotransferase 29 U/L (0-41); Albumin Level 3.6 g/dL (3.5-5.2); Alkaline Phosphatase 308 IU/L (40-130); Anion Gap 16.2 (5-19); Aspartate Amino Transferase 36 U/L (0-40); Blood Urea Nitrogen 33 mg/dL (6-20); Calcium 11.9 mg/dL (8.5-10.5); Carbon Dioxide 20 mmol/L (22-29); Chloride 104 mmol/L (98-107); Glomerular Filtration Rate 34.4 mL/min (90-130); Glucose 99 mg/dL (65-115); Osmolality Calculated 289 mOsm/kg (285-295); Potassium 4.2 mmol/L (3.5-5.1); Sodium 136 mmol/L (136-145); Total Bilirubin 0.3 mg/dL (0.15-1.2); Total Protein 6.6 g/dL (6.6-8.7)
[2021-10-01] MEDS: amlodipine 5 mg Tablet PO (14:13)
[2021-10-01 17:44] LABS: Ionized Calcium 1.5 mmol/L (1.1-1.4)
[2021-10-02] VITALS (7 sets, daily range): BP systolic 131–151; BP diastolic 88–97; PULSE 76–85; RESP 14–18; TEMP 36.7–36.8; O2SAT 94–96
[2021-10-02 03:12] LABS: Basophils % 0.1 %; Hematocrit 44.5 % (42.0-52.0); Hemoglobin 14.3 g/dL (11.7-16.6); Lymphocytes # 0.4 10^3/uL (0.8-4.8); Lymphocytes % 4.7 %; Mean Corpuscular HGB Conc 32.1 g/dL (30.0-36.0); Mean Corpuscular Volume 90.3 fl (80-94); Mean Platelet Volume 11.9 fL (7.4-10.4); Monocytes # 0.4 10^3/uL (0.2-0.9); Monocytes % 5.2 %; Neutrophils % 89.6 %; Nucleated Red Blood Cells % 0 %; Platelet Count 202 10^3/cmm (130-400); Red Blood Count 4.93 10^6/uL (4.1-5.3); White Blood Count 7.7 10^3/uL (4.0-10.0)
[2021-10-02 03:39] LABS: Alanine Aminotransferase 32 U/L (0-41); Albumin Level 3.7 g/dL (3.5-5.2); Alkaline Phosphatase 327 IU/L (40-130); Anion Gap 18.2 (5-19); Aspartate Amino Transferase 35 U/L (0-40); Blood Urea Nitrogen 38 mg/dL (6-20); Calcium 11.6 mg/dL (8.5-10.5); Carbon Dioxide 19 mmol/L (22-29); Chloride 103 mmol/L (98-107); Globulin 3.3 g/dL (1.3-4.6); Glomerular Filtration Rate 36.3 mL/min (90-130); Glucose 119 mg/dL (65-115); Magnesium 1.8 mg/dL (1.7-2.3); Osmolality Calculated 292 mOsm/kg (285-295); Phosphorus 4.4 mg/dL (2.5-4.5); Potassium 4.2 mmol/L (3.5-5.1); Sodium 136 mmol/L (136-145); Total Bilirubin 0.3 mg/dL (0.15-1.2)
[2021-10-02] MEDS: sodium chloride 0.9% 1,000 ML 150 ML IV ×2 (04:48→13:00)
[2021-10-02] MEDS: cefTRIAXone 1,000 MG in sodium chloride 0.9% (plus) 50 ML 100 MG IV (04:49)
[2021-10-02] MEDS: LORazepam 0.5 mg Tablet PO ×2 (08:34→16:25)
[2021-10-02] MEDS: pantoprazole DR 40 mg Tablet PO (08:34)
[2021-10-02] MEDS: predniSONE 20 mg Tablet 40 MG PO (08:35)
[2021-10-02] MEDS: amlodipine 5 mg Tablet PO (08:35)
[2021-10-02] MEDS: buprenorphine-naloxone 4-1 mg Film 1 EACH SUBLINGUAL ×2 (08:35→15:11)
--- NOTE | 2021-10-02 10:46 | P.PN_ITS ---
Subjective Subjective: Jean Pierre feels well with no acute issues today. Passing urine without any obstruction. Blood pressure noted to be stable. No extremity edema. Vitals/I&O/Wt Last Vital Signs Temp 98.0 F 10/02/21 06:54 Pulse 76 10/02/21 06:54 Resp 16 10/02/21 06:54 BP 151/95 10/02/21 06:54 Pulse Ox 96 10/02/21 06:54 10/01/21 10/02/21 10/02/21 22:59 06:59 14:59 Intake Total 2105 / 4085 1200 / 5285 360 / 360 Output Total 2400 / 4400 2100 / 6500 1900 / 1900 Balance -295 / -315 -900 / -1215 -1540 / -1540 Weight last 48 hrs Weight 64.864 kg Physical Exam Narrative: Constitutional: Awake, comfortable HEENT: Wet mucosa, no jvp, non icteric Lungs: Bilaterally clear without discernible wheeze, rales in all lung zones CVS: S1 S2, no murmurs Abdo: Soft, BS ok Ext 4: Minimal edema, peripheral perfusion with no cyanosis Neurological: Grossly non-focal Data : 10/02/21 02:20 10/02/21 02:20 Micro: Microbiology 09/29/21 23:33 Urine Culture - Final Urine,Clean Catch 09/30/21 13:43 Blood Culture - Preliminary Blood NEGATIVE TO DATE 09/30/21 11:11 Blood Culture - Preliminary Blood NEGATIVE TO DATE A&P Assessment and plan (1) Sarcoidosis: Status: Acute Plan 1. Acute on chronic kidney disease. Baseline creatinine 2 mg/dL i.e. he is not back to this. Hypercalcemia causes acute renal insufficiency via 2 mechanisms, by both vasoconstriction and promoting natriuresis I have encouraged him to continue to hydrate well Calcium management as outlined below Follow with outpatient nephrology Avoid usual nephrotoxic agents. 2. Hypercalcemia An interesting side effect of macrophage activity in sarcoidosis, characterized by the extrarenal hydroxylation of vitamin D to calcitriol. I have given him advice on long-term therapy including decreasing calcium to less than 400 mg a day, avoiding oxalate, hydrating well, avoiding sunlight, avoiding vitamin D products. Not a candidate for steroid therapy given side effects in the past. We will consider ketoconazole as an outpatient only given his requirement for monitoring. Can attempt to use nasal calcitonin to see if this is effective 3. Disposition Okay for discharge today with outpatient follow-up from nephrology. Woody Parker MD Nephrology [phone] Patient seen and examined via telemedicine, with the assistance of the bedside RN > 25 min spent in evaluation and mgmt of patient Attestations Medical Necessity Statement*: eval for MEDHAT Coding Level of Care Code Acute Histology Aide for [facility] Fwd Diagnoses Sarcoidosis D86.9
[2021-10-02] MEDS: calcitonin nasal 200 unit/spray 3.7 mL Btl 1 SPRAY NOSTRIL-AL (12:17)
[2021-10-02] MEDS: heparin 5,000 unit/mL INJ 1 mL 5000 UNIT SUBCUT (12:17)
--- NOTE | 2021-10-02 16:22 | PM.DCS ---
Discharge Providers Date of Admission: 09/30/21 00:02 Date of Discharge: October 02, 2021 Attending Provider at Admission: Joys Torres Attending Provider at Discharge: Kartik Omer Primary Care Provider: Aaliyah Hall Diagnoses at Discharge Discharge Diagnosis (1) Sarcoidosis: Status: Acute Reason for Visit Reason for Visit: NAUSEA Hospital Course Hospital Course Pleasant 36-year-old gentleman with history of sarcoidosis, history of alcohol use disorder 38 days sober on admit, with history of substance use disorder on Suboxone, who has felt ill/unwell for several weeks, with dizziness, nausea, not feeling like himself. With history of chronic kidney disease due to sarcoidosis. Baseline creatinine around 2. On presentation noted with acute kidney injury, creatinine 3.1, as well as hypercalcemia, calcium 13.3. 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 Was started on treatment with IV fluids. Symptomatic treatment of nausea, Zofran, trial of clear liquids. COVID-[address] abdomen pelvis was obtained showing moderate stool in colon, nonspecific prominence of gallbladder wall partially decompressed, no stone seen, hepatosplenomegaly with periportal retroperitoneal, right pelvic and epicardial lymphadenopathy. Extensive calcification within the medullary pyramids raising concern for medullary nephrocalcinosis. Bladder wall mildly thickened. Consideration occluding partial bladder outlet obstruction or cystitis. Extensive groundglass opacity in the lung bases. Recommended high-resolution CT chest interstitial protocol to better characterize. Noted cardiomegaly. Minimal ascites. Trace left pleural effusion. UA with suggestion of possible UTI for which was treated with ceftriaxone while the hospital and will complete course with cefdinir. UA has not been revealing of an organism. Showed partial improvement of hypercalcemia with IV hydration, however, persistent elevation with calcium, down to 11.6 today. Given a dose of pamidronate on 10/01. Was assessed by nephrology with additional recommendations, currently started on intranasal calcitonin trial at discharge as well. Acute kidney injury on chronic kidney disease improved as well, creatinine at baseline now at 2.1. Is asked to follow-up for repeat chemistries, as well as follow-up with nephrology for whom he states he already has an appointment. In addition asked to follow-up with rheumatology and due to concern for pulmonary processes referred for additional assessment by pulmonology. Currently ultrasound presents. Echogenic plaque measuring up calcinosis. Appears to be incorporating bilaterally. No hydronephrosis. Encephalopathy echogenic liver lesion recommended. Ultrasound to further assess. On CT abdomen and pelvis liver was enlarged to 21 cm. He is asked to decrease calcium to less than 400 mg a day, avoid oxalate, hydrate well, avoiding sunlight, avoiding vitamin D products. Please consider also referral for eye exam to screen for ocular sarcoidosis. Continue to encourage abstinence from alcohol. Physical Exam Const: COMMON NORMALS: no acute distress and patient oriented x3 HENMT: COMMON NORMALS: oropharynx normal Neck/C-Spine: COMMON NORMALS: no JVD Resp: COMMON NORMALS: normal respiratory effort and clear to auscultation bilaterally AUSCULTATION: clear to auscultation bilaterally Cardio: COMMON NORMALS: no JVD, regular rhythm, S1 normal heart sound present, S2 normal heart sound present and No murmurs present (Cardio) RHYTHM: regular rhythm HEART SOUNDS: S1 normal heart sound present and S2 normal heart sound present GI: COMMON NORMALS: Normal to inspection, nondistended, normoactive bowel sounds present, Soft to palpation and non-tender PALPATION: Yes Soft to palpation Extremity: COMMON NORMALS: no joint enlargement and no pedal edema Neuro: COMMON NORMALS: patient oriented x3 and moves all extremities Skin: COMMON NORMALS: no rashes or lesions noted GENERAL SKIN EXAM: no rashes or lesions noted Discharge Data Studies Completed and Pending Completed Studies During Hospitalization Category Date Time Status CT abdomen pelvis wo con [id number] Stat Cat Scan 09/30/21 11:56 Completed XR chest 1V portable [id number] Urgent Exams 09/29/21 22:39 Completed US renal BI* [id number] Routine Ultrasound 09/30/21 03:27 Completed Pending at discharge Category Date Time Status Blood Culture Stat Lab 09/30/21 13:43 Results Complete Blood Count w/Auto AM LABS Lab 10/03/21 04:00 Ordered Comprehensive Metabolic Panel AM LABS Lab 10/03/21 04:00 Ordered Magnesium AM LABS Lab 10/03/21 04:00 Ordered Phosphorus AM LABS Lab 10/03/21 04:00 Ordered Radiology Impressions Chest X-Ray 09/29/21 22:39 IMPRESSION: 1. Mild nonspecific diffuse coarsening of the interstitial markings. This may represent interstitial edema versus inflammation versus infection. 2. Pleural-based 2.5 cm density along the left lateral chest wall. This may represent a focal infiltrate versus a pleural based mass. Consider CT of the chest for further evaluation. 3. No other focal pulmonary abnormality demonstrated. Renal Ultrasound 09/30/21 03:27 IMPRESSION: 1. The renal pyramids appear echogenic, bilaterally, which may reflect medullary nephrocalcinosis. 2. There appears to be renal cortical thinning bilaterally. 3. No hydronephrosis. 4. Possible echogenic lesion in the liver. Recommend right upper quadrant ultrasound to further assess. Abdomen/Pelvis CT 09/30/21 11:56 IMPRESSION: 1. Moderate stool in the colon; query constipation. 2. Nonspecific prominence of the gallbladder wall. The gallbladder is partially decompressed. No stone is seen. 3. Hepatosplenomegaly with periportal, retroperitoneal, right pelvic and epicardial lymphadenopathy. 4. There is extensive calcification within the medullary pyramids raising concern for medullary nephrocalcinosis. 5. The bladder wall is mildly thickened. Considerations include partial bladder outlet obstruction or cystitis. Correlate with urinalysis. A small bladder stone is noted. 6. Extensive ground-glass opacity at the lung bases. Recommend high-resolution CT chest interstitial protocol to better characterize. 7. Cardiomegaly. 8. Minimal ascites. 9. Trace left pleural effusion. COMMENTS: Consistent with the [place] [employer]'s Incidental Findings Committee white paper (J Am Ramos Radiol 2018): Any incidental renal lesion less than 1 cm or classified as too small to characterize, or any incidental cystic renal lesion characterized as simple-appearing, is likely benign. No follow-up imaging is recommended for these lesions per consensus recommendations based on imaging criteria. Laboratory Results WBC 7.7 10^3/uL (4.0-10.0) 10/02/21 02:20 RBC 4.93 10^6/uL (4.1-5.3) 10/02/21 02:20 Hgb 14.3 g/dL (11.7-16.6) 10/02/21 02:20 Hct 44.5 % (42.0-52.0) 10/02/21 02:20 MCV 90.3 fl (80-94) 10/02/21 02:20 MCH 29.0 pg (28.0-34.0) 10/02/21 02:20 MCHC 32.1 g/dL (30.0-36.0) 10/02/21 02:20 RDW 14.0 % (12.1-15.1) 10/02/21 02:20 Plt Count 202 10^3/cmm (130-400) 10/02/21 02:20 MPV 11.9 fL (7.4-10.4) H 10/02/21 02:20 Neut % (Auto) 89.6 % 10/02/21 02:20 Lymph % (Auto) 4.7 % 10/02/21 02:20 [place] % (Auto) 5.2 % 10/02/21 02:20 Eos % (Auto) 0.0 % 10/02/21 02:20 Baso % (Auto) 0.1 % 10/02/21 02:20 Neut # (Auto) 6.90 10^3/uL (1.8-7.7) 10/02/21 02:20 Lymph # (Auto) 0.4 10^3/uL (0.8-4.8) L 10/02/21 02:20 [place] # (Auto) 0.4 10^3/uL (0.2-0.9) 10/02/21 02:20 Eos # (Auto) 0.0 10^3/uL (0.0-0.8) 10/02/21 02:20 Baso # (Auto) 0.0 10^3/uL (0.0-0.1) 10/02/21 02:20 Nucleated RBC % (auto) 0 % 10/02/21 02:20 Nucleated RBCs # 0.0 /100WBC 10/02/21 02:20 ESR 23 mm/hr (0-10) H 09/29/21 22:14 Sodium 136 mmol/L (136-145) 10/02/21 02:20 Potassium 4.2 mmol/L (3.5-5.1) 10/02/21 02:20 Chloride 103 mmol/L (98-107) 10/02/21 02:20 Carbon Dioxide 19 mmol/L (22-29) L 10/02/21 02:20 Anion Gap 18.2 (5-19) 10/02/21 02:20 BUN 38 mg/dL (6-20) H 10/02/21 02:20 Creatinine 2.1 mg/dL (0.7-1.2) H 10/02/21 02:20 GFR Calculation 36.3 mL/min (90-130) L 10/02/21 02:20 Glucose 119 mg/dL (65-115) H 10/02/21 02:20 Calculated Osmolality 292 mOsm/kg (285-295) 10/02/21 02:20 Lactate 1.5 mmol/L (0.5-2.2) 09/29/21 22:14 Calcium 11.6 mg/dL (8.5-10.5) H 10/02/21 02:20 Ionized Calcium [place] 1.5 mmol/L (1.1-1.4) H 10/01/21 17:33 Phosphorus 4.4 mg/dL (2.5-4.5) 10/02/21 02:20 Magnesium 1.8 mg/dL (1.7-2.3) 10/02/21 02:20 Total Bilirubin 0.3 mg/dL (0.15-1.2) 10/02/21 02:20 AST 35 U/L (0-40) 10/02/21 02:20 ALT 32 U/L (0-41) 10/02/21 02:20 Alkaline Phosphatase 327 IU/L (40-130) H 10/02/21 02:20 Creatine Kinase 44 U/L (39-308) 09/29/21 22:14 C-Reactive Protein 16.1 mg/L (0.0-4.9) H 09/30/21 04:13 Total Protein 7.0 g/dL (6.6-8.7) 10/02/21 02:20 Albumin 3.7 g/dL (3.5-5.2) 10/02/21 02:20 Globulin 3.3 g/dL (1.3-4.6) 10/02/21 02:20 25-OH Vitamin D Total 5 ng/mL (30-100) L 09/30/21 13:43 Procalcitonin 0.30 ng/mL (0-0.5) 09/29/21 22:14 TSH 1.27 uIU/mL (0.27-4.20) 09/30/21 13:43 PTH Intact 5.9 pg/mL (15-65) L 09/30/21 13:43 Calcium (PTH Intact) 12.2 mg/dL (8.5-10.5) H 09/30/21 13:43 Urine Color Yellow (Yellow) 09/29/21 23: Urine Appearance Sl hazy (CLEAR) 09/29/21 23: Urine pH 6.5 (5-7) 09/29/21 23:33 Ur Specific [place] 1.015 (1.005-1.030) 09/29/21 23: Urine Protein 1+ (Negative) H 09/29/21 23: Urine Glucose (UA) Norm (Normal) 09/29/21 23: Urine Ketones Negative (Negative) 09/29/21: Urine Blood 2+ (Negative) H 09/29/21 23: Urine Nitrate Negative (Negative) 09/29/21: Urine Bilirubin Neg (Negative) 09/29/21 23: Urine Urobilinogen Norm mg/dL (Negative) 09/29/21 23:33 Ur Leukocyte Esterase 2+ (Negative) H 09/29/21 23:33 Urine RBC 15-25 /hpf (0-2) H 09/29/21 23:33 Urine WBC 40-55 /hpf (0-5) H 09/29/21 23:33 Ur Squamous Epith Cells 0-4 /hpf (0-5) H 09/29/21 23: Amorphous Sediment Not Reportable 09/29/21 23:33 Urine Bacteria 2+ /hpf (NONE) H 09/29/21 23:33 Urine Opiates Screen Negative ng/mL (Negative) 09/30/21 12:00 Ur Barbiturates Screen Negative ng/mL (Negative) 09/30/21 12:00 Ur Phencyclidine Scrn Negative ng/mL (Negative) 09/30/21 12:00 Ur Amphetamines Screen Negative ng/mL (Negative) 09/30/21 12:00 U Benzodiazepines Scrn Positive ng/mL (Negative) H 09/30/21 12:00 Urine Cocaine Screen Negative ng/mL (Negative) 09/30/21 12:00 U Marijuana (THC) Screen Negative ng/mL (Negative) 09/30/21 12:00 Ethyl Alcohol < 10 mg/dL (0-10) 09/30/21 11:11 Coronavirus 229E (PCR) Not detected (NOT DETECT) 09/30/21 04:13 Hepatitis A IgM Ab Non-reactive (Nonreactive) 09/30/21 13:43 Hep Bs Antigen Non-reactive (Nonreactive) 09/30/21 13:43 Hep B Core IgM Ab Non-reactive (Nonreactive) 09/30/21 13:43 Hepatitis C Antibody Non-reactive (Nonreactive) 09/30/21 13:43 HIV 1&2 Ab & HIV 1 Ag Non-reactive (Non-Reactiv) 09/30/21 13:43 HIV 1&2 Antibody Non-reactive (Non-Reactiv) 09/30/21 13:43 SARS-CoV-2 (PCR) Not detected (NOT DETECT) 09/30/21 04:13 Vitals Last Vital Signs Temp 98.0 F 10/02/21 06:54 Pulse 76 10/02/21 16:02 Resp 14 10/02/21 16:02 BP 131/88 10/02/21 16:02 Pulse Ox 94 10/02/21 16:02 Discharge Plan Discharge Patient Disposition: Home Condition: Stable Prescriptions: New calcitonin (salmon) 200 unit/actuation [place],Non-Aerosol 1 spray nostril-al DAILY Qty: 3.7 0RF cefdinir 300 mg capsule 300 mg PO BID 7 Days Qty: 14 0RF Continued lisinopril 20 mg tablet 20 mg PO BID 0RF amlodipine 2.5 mg tablet 2.5 mg PO DAILY 0RF prednisolone acetate 1 % drops,suspension 1 drp ophthalmic (eye) Q2H 0RF Rx Instructions: 1 drop in each eye every 2 hours while awake lorazepam 0.5 mg tablet 0.5 mg PO Q8H PRN (Reason: Anxiety) 0RF Zoloft 25 mg tablet 25 mg PO DAILY 0RF ondansetron 4 mg tablet,disintegrating 4 mg PO TID 0RF buprenorphine-naloxone 4-1 mg film 1 film sublingual BID 0RF Discharge Orders: Discharge Order (Routine); Ordered 10/02/21 Ordered By: Kartik Omer Referrals: [facility] [Other] - 4-7 days (Please follow-up with Aaliyah Hall on October 09 at 9:00A.M. If you have any questions or need to reschedule. Please ) Your, sheet catcher [Other] - 1 week (Please keep your new patient appointment with Dr. Lombardo tomorrow at 1:30P.M. At the [facility]. If you have any questions or need ot reschedule. Please call ) Rheumatology [Provider Group] - 4-7 days (Sarcoidosis) Datar,Karson Mccann MD [Physician] - 1 week ([facility] is moving to their new [facility]. [facility] will contact you to schedule an follow-up appointment. If you haven't heard from them by tomorrow afternoon. Please call ) Discharge Diet: As Directed Patient Instructions: Cefdinir (By mouth), Calcitonin (Into the nose), Acute Kidney Injury (GEN), Urinary Tract Infection in Men (DC), Low Oxalate Diet (GEN), Sarcoidosis (DC), Hypercalcemia (GEN), Opioid Safety Activity Restrictions/Additional Instructions: Decrease calcium to less than 400 mg a day, avoid oxalate, hydrate well, avoiding sunlight, avoiding vitamin D products. Discharge Attestations Time Spent in Discharge Care*: greater than 30 min Quality Metrics Clinical Quality Measures [ No reported AMI, CVA or VTE this stay] Coding Level of Care Code Acute Chg FW DC note Diagnoses Sarcoidosis D86.9
--- NOTE | 2021-10-02 17:36 | PC.NURSE ---
discharge instructions given and explained.pt verb understanding of instructions.discharged ambulatory to exit.parents to drive pt home
== END 2021-10-02 17:37 | disposition home or self-care (01) | DRG 197 ==
LOC: ER 23:48 → ER IP 09-30 00:35 → CSU 09-30 09:25
PROVIDERS: Family Medicine; Internal Medicine; Admitting Provider Hospitalist; Emergency Provider Emergency Medicine; PCP Physician Assistant; Visit Provider Internal Medicine
DX: D86.9 Sarcoidosis, unspecified (principal); N17.9 Acute kidney failure, unspecified; N39.0 Urinary tract infection, site not specified; E83.52 Hypercalcemia; N18.30 Chronic kidney disease, stage 3 unspecified; F10.21 Alcohol dependence, in remission; R11.2 Nausea with vomiting, unspecified; R82.90 Unspecified abnormal findings in urine; F19.11 Other psychoactive substance abuse, in remission; I12.9 Hypertensive chronic kidney disease with stage 1 through stage 4 chronic kidney disease, or unspecified chronic kidney disease
CPT/HCPCS: 36415; 71045; 74176; 76770; 80048; 80053; 80074; 80306; 80307; 81001; 82306; 82310; 82330; 82550; 83605; 83735; 83970; 84100; 84145; 84443; 85025; 85651; 86140; 87040; 87086; 87635; 87806; 96365; 96367; 96372; 96375; 99285; J0573; J0696; J1644; J2405; J2430; J3475; J7030; J7040; J7512; Q3014

== ENCOUNTER 2022-08-14 23:25 | Inpatient (IN) | payer MEDICARE, MEDICAID, SELFPAY ==
[2022-08-14 23:29] VITALS: BP 135/101; PULSE 92; RESP 16; TEMP 36.8; O2SAT 97; BMI 23.6
--- NOTE | 2022-08-14 23:36 | W.ED.AMS ---
HPI - Altered Mental Status General: Chief Complaint: ER Hold Stated Complaint: AMS Time Seen by Provider: 08/14/22 23:36 History of Present Illness: Mr. Bolanos is a 37-year-old gentleman with history of sarcoidosis, CKD, remote history of alcohol abuse presenting to the emergency department for altered mental status. He reports worsening symptoms over the past week and a half or so. He endorses feeling like his brain is in a fog, at times confusion, unsteadiness, hallucinations. He was at the top of the ladder at work and almost fell due to an unsteady feeling. He notes generalized malaise but no other specific focal symptoms. Intensity symptoms is moderate to severe. Course is worsened. Denies any changes to medications or other known specific provoking events. No other specific changes in health, exacerbating, or alleviating factors identified. Onset (ago): week(s) Severity: severe Consistency of symptoms: Getting Worse Context: other (Sarcoidosis) Associated symptoms: Reports auditory hallucinations and other Review of Systems General: Reports: 10 or more systems reviewed and unremarkable except in HPI and below Psych: Reports: auditory hallucinations PFSH ED PFSH: Medical History Alcoholism Drug abuse No pertinent family history Psychiatric care Sarcoidosis Surgical History H/O cervical spine surgery Social History Smoking and tobacco status: never smoked Physical Exam Const: COMMON NORMALS: patient oriented x3 and alert GENERAL APPEARANCE: cooperative and well developed HENMT: COMMON NORMALS: normocephalic and atraumatic HEAD & SCALP: normocephalic and atraumatic Eye: COMMON NORMALS: conjunctivae normal CONJUNCTIVA: Yes conjunctivae normal SCLERA: sclerae normal Neck/C-Spine: COMMON NORMALS: supple GENERAL: Yes trachea midline Resp: COMMON NORMALS: clear to auscultation bilaterally EFFORT & INSPECTION: Yes able to speak in complete sentences AUSCULTATION: clear to auscultation bilaterally Cardio: COMMON NORMALS: regular rate and regular rhythm RATE: regular rate RHYTHM: regular rhythm GI: COMMON NORMALS: Soft to palpation PALPATION: Yes Soft to palpation and No Tenderness to palpation present (GI) Extremity: GENERAL: Yes normal exam except as noted and No edema Neuro: COMMON NORMALS: patient oriented x3, CN's II-XII intact bilaterally, moves all extremities, no focal motor deficits and no sensory deficits noted SENSORIUM/ORIENTATION: Yes alert and No Orientation impaired Psych: COMMON NORMALS: mental status grossly normal THOUGHT PROCESS: disorganized (mildly) INSIGHT: Fair insight present (Psych) JUDGEMENT: Fair judgement present (Psych) Course Vital Signs: Vital signs: Vital Signs Temperature 97.4 F L 08/19/22 12:40 Pulse Rate 88 08/19/22 12:40 Respiratory Rate 18 08/19/22 12:40 Blood Pressure 112/76 08/19/22 12:40 Pulse Oximetry 96 08/19/22 12:40 Oxygen Delivery Me thod 08/19/22 10:42 MDM - Altered Mental Status Medical Decision Making 37-year-old gentleman presenting initially with concern of generalized malaise and feeling brain fogginess. Patient is nontoxic in appearance, no focal neurologic deficits, no meningismus. He does appear to have some slowed mentation and difficulty describing symptoms. EKG notable for sinus rhythm, no STEMI. Labs with mild hemoconcentration, no leukocytosis. No significant ABG abnormality to explain symptoms. Metabolic panel with mild hypokalemia. Patient does have a history of CKD likely secondary to sarcoidosis and creatinine is improved mildly from baseline. CRP consistent with prior. Urinalysis is concerning for urinary tract infection, hematuria may be secondary to underlying sarcoid kidney disease. Patient does not have complaints consistent with kidney stone or other pathology requiring advanced imaging. Chest x-ray with persistent left midlung density which requires outpatient nonemergent CT. Head CT negative for acute pathology to explain change in mental status. IV fluids and potassium replenishment as well as antibiotics administered Upon further discussion of laboratory results patient does not feel significantly improved. I discussed positive urine drug screen for amphetamines, he endorses using a pill that someone gave him that he thought was an energy pill or diet pill as he was getting quite tired driving back from [place] after going to see his dad who had a heart attack. He does endorse difficulties recently with mental health including hallucinations these hallucinations predate use of this pill. He feels that they have become more intense and uncontrolled. He does endorse a remote history of substance abuse and hallucinations associated with that however has not had for a number of months. Based on ED evaluation at this point there is no obvious condition that would preclude inpatient management of psychiatric concerns. The results of ED evaluation were discussed with the patient including plan for admission due to requirement for level of care not available if discharged to prevent significant worsening/deterioration. Patient agreeable with plan. Discussed with psychiatry service who was agreeable to admit patient. Medical Records I reviewed the patient's medical records. Lab Data I reviewed the patient's lab results. 08/14/22 23:59 08/14/22 23:59 Radiology Impressions Chest X-Ray 08/14/22:51 IMPRESSION: 1. No acute disease. 2. Persistent left midlung pleural-based density of unclear etiology. Nonemergent CT chest follow-up would better assess this lesion. Head CT 08/14/22:51 IMPRESSION: No acute intracranial abnormality. Laboratory Results WBC 8.4 10^3/uL (4.0-10.0) 08/14/22 23:59 RBC 6.09 10^6/uL (4.1-5.3) H 08/14/22 23:59 Hgb 17.1 g/dL (11.7-16.6) H 08/14/22 23:59 Hct 51.6 % (42.0-52.0) 08/14/22 23: MCV 84.7 fl (80-94) 08/14/22 23:59 MCH 28.1 pg (28.0-34.0) 08/14/22 23: MCHC 33.1 g/dL (30.0-36.0) 08/14/22: RDW 14.5 % (12.1-15.1) 08/14/22 23:59 Plt Count 163 10^3/cmm (130-400) 08/14/22 23:59 MPV 10.8 fL (7.4-10.4) H 08/14/22 23:59 Neut % (Auto) 81.3 % 08/14/22 23:59 Lymph % (Auto) 8.1 % 08/14/22 23:59 [place] % (Auto) 7.8 % 08/14/22 23:59 Eos % (Auto) 1.8 % 08/14/22 23: Baso % (Auto) 0.6 % 08/14/22 23:59 Neut # (Auto) 6.86 10^3/uL (1.8-7.7) 08/14/22 23:59 Lymph # (Auto) 0.7 10^3/uL (0.8-4.8) L 08/14/22 23:59 [place] # (Auto) 0.7 10^3/uL (0.2-0.9) 08/14/22 23:59 Eos # (Auto) 0.2 10^3/uL (0.0-0.8) 08/14/22 23:59 Baso # (Auto) 0.1 10^3/uL (0.0-0.1) 08/14/22:59 Nucleated RBC % (auto) 0 % 08/14/22: Nucleated RBCs # 0.0 /100WBC 08/14/22 23:59 Specimen Type Arterial 08/14/22 00:04 Sample Site Radial, right 08/14/22 00:04 ABG pH 7.39 (7.35-7.45) 08/14/22 00:04 ABG pCO2 43.6 mmHg (35-45) 08/14/22 00:04 ABG pO2 76.1 mmHg (80.0-100.0) L 08/14/22 00:04 ABG HCO3 26.6 mmol/L (22-26) H 08/14/22 00:04 ABG O2 Saturation 97.1 08/14/22 00:04 ABG Base Excess 1.2 mmol/L (-2.0-2.0) 08/14/22 00:04 [place] Test Pos 08/14/22 00:04 A-a O2 Gradient 2.4 mmHg (5-10) L 08/14/22 00:04 Hematocrit 54.8 % (42-52) H 08/14/22 00:04 Hgb O2 Saturation 95.1 % (95-100) 08/14/22 00:04 Carboxyhemoglobin 1.4 %THgb (0.4-20.1) 08/14/22 00:04 Methemoglobin 0.6 % (0.4-1.5) 08/14/22 00:04 Total Hemoglobin 17.9 g/dL (14-18) 08/14/22 00:04 Sodium 139.0 mmol/L (131-143) 08/14/22 00:04 Potassium 3.1 mmol/L (3.5-5.0) L 08/14/22 00:04 Glucose 88.0 mg/dL (70-115) 08/14/22 00:04 Ionized Calcium 1.3 mmol/L (1.1-1.4) 08/14/22 00:04 O2 Delivery Device None 08/14/22 00:04 FiO2 21.0 % 08/14/22 00:04 Community Health Education Coordinator ID Anonymous 08/14/22 00:04 Sodium 137 mmol/L (136-145) 08/14/22 23:59 Potassium 3.4 mmol/L (3.5-5.1) L 08/14/22 23:59 Chloride 101 mmol/L (98-107) 08/14/22 23:59 Carbon Dioxide 24 mmol/L (22-29) 08/14/22 23:59 Anion Gap 15.4 (5-19) 08/14/22 23:59 BUN 26 mg/dL (6-20) H 08/14/22 23:59 Creatinine 1.7 mg/dL (0.7-1.2) H 08/14/22 23:59 GFR Calculation 46.1 mL/min (90-130) L 08/14/22 23:59 Glucose 88 mg/dL (65-115) 08/14/22 23:59 Calculated Osmolality 288 mOsm/kg (285-295) 08/14/22 23:59 Calcium 9.6 mg/dL (8.5-10.5) 08/14/22 23:59 Phosphorus 3.7 mg/dL (2.5-4.5) 08/15/22 00:35 Magnesium 1.9 mg/dL (1.7-2.3) 08/15/22 00:35 Total Bilirubin 0.9 mg/dL (0.15-1.2) 08/14/22 23:59 AST 21 U/L (0-40) 08/14/22 23:59 ALT 24 U/L (0-41) 08/14/22 23:59 Alkaline Phosphatase 125 U/L (40-130) 08/14/22 23:59 Ammonia 27 umol/L (16-60) 08/15/22 00:31 C-Reactive Protein 20.3 mg/L (0.0-4.9) H 08/14/22 23:59 Total Protein 7.4 g/dL (6.6-8.7) 08/14/22 23:59 Albumin 4.3 g/dL (3.5-5.2) 08/14/22 23:59 Globulin 3.1 g/dL (1.3-4.6) 08/14/22 23:59 TSH 1.54 uIU/mL (0.27-4.20) 08/14/22 23:59 Urine Color Yellow (Yellow) 08/15/22 01:57 Urine Appearance Sl hazy (CLEAR) A 08/15/22 01:57 Urine pH 6 (5-7) 08/15/22 01:57 Ur Specific [place] 1.015 (1.005-1.030) 08/15/22 01:57 Urine Protein Trace (Negative) 08/15/22 01:57 Urine Glucose (UA) Norm (Normal) 08/15/22 01:57 Urine Ketones Negative (Negative) 08/15/22 01:57 Urine Blood 3+ (Negative) H 08/15/22 01:57 Urine Nitrate Negative (Negative) 08/15/22 01:57 Urine Bilirubin Neg (Negative) 08/15/22 01:57 Urine Urobilinogen Norm mg/dL (Negative) 08/15/22 01:57 Ur Leukocyte Esterase 1+ (Negative) H 08/15/22 01:57 Urine RBC 80-100 /hpf (0-2) H 08/15/22 01:57 Urine WBC 15-25 /hpf (0-5) H 08/15/22 01:57 Ur Squamous Epith Cells 0-4 /hpf (0-5) H 08/15/22 01:57 Amorphous Sediment 1+ /hpf 08/15/22 01:57 Urine Bacteria 1+ /hpf (NONE) H 08/15/22 01:57 Salicylates < 0.3 mg/dL (3-10) L 08/14/22 23:59 Urine Opiates Screen Negative ng/mL (Negative) 08/15/22 01:57 Acetaminophen < 5.0 ug/mL (10-30) L 08/14/22 23:59 Ur Barbiturates Screen Negative ng/mL (Negative) 08/15/22 01:57 Ur Phencyclidine Scrn Negative ng/mL (Negative) 08/15/22 01:57 Ur Amphetamines Screen Positive ng/mL (Negative) H 08/15/22 01:57 U Benzodiazepines Scrn Negative ng/mL (Negative) 08/15/22 01:57 Urine Cocaine Screen Negative ng/mL (Negative) 08/15/22 01:57 U Marijuana (THC) Screen Negative ng/mL (Negative) 08/15/22 01:57 Ethyl Alcohol < 10 mg/dL (0-10) 08/14/22 23:59 Coronavirus 229E (PCR) Not detected (NOT DETECT) 08/15/22 01:00 SARS-CoV-2 (PCR) Not detected (NOT DETECT) 08/15/22 01:00 Discharge Plan Discharge Patient Disposition: Admitted As Inpatient Admit Provider: Antonino Giraldo Clinical Impression: Altered mental status, Hallucinations, Depression, Acute UTI, Hematuria, Dehydration, mild, CKD (chronic kidney disease) Condition: Stable Discharge Diet: Regular Discharge Activity: Resume usual activity Coding Level of Care Code ED Fine Arts Instructor for Sreedhar Fwd Exam Comprehensive
--- NOTE | 2022-08-14 23:51 | XRR_ITS ---
PROCEDURE INFORMATION: Exam: XR Chest Exam date and time: 08/14/2022 11:53 PM Age: 37 years old Clinical indication: Other: AMS TECHNIQUE: Imaging protocol: Radiologic exam of the chest. Views: 1 view. COMPARISON: CR XR chest 1V portable [id number] 09/29/2021 11:02 PM FINDINGS: Lungs: Lungs are otherwise clear. No new consolidation. Pleural spaces: Unremarkable. No pleural effusion. No pneumothorax. Heart/Mediastinum: Unremarkable. No cardiomegaly. Bones/joints: Unremarkable. Soft tissues: Nonspecific 2.3 cm left mid chest pleural-based density again visualized. XR/XR chest 1V portable [id number] IMPRESSION: 1. No acute disease. 2. Persistent left midlung pleural-based density of unclear etiology. Nonemergent CT chest follow-up would better assess this lesion.
--- NOTE | 2022-08-14 23:51 | ECG_ITS ---
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 Measurements Intervals [place] Rate: 70 P: 60 WI: 159 QRS: 61 QRSD: 86 T: 62 QT: 421 QTc: 455 Interpretive Statements SINUS RHYTHM POSSIBLE LEFT ATRIAL ENLARGEMENT [-0.1mV P-WAVE IN V1/V2] No previous ECG available for comparison Electronically Signed On 08-15-2022 21:41:[address]GE by James Cantu M.D. [email or web address]
--- NOTE | 2022-08-14 23:51 | CTR_ITS ---
PROCEDURE INFORMATION: Exam: CT Head Without Contrast Exam date and time: 08/15/2022 12:15 AM Age: 37 years old Clinical indication: Prior surgery; Surgery type: Cervical fusion; Patient HX: C/O lethargy with dizziness; Additional info: AMS TECHNIQUE: Imaging protocol: Computed tomography of the head without contrast. Radiation optimization: All CT scans at this facility use at least one of these dose optimization techniques: automated exposure control; mA and/or kV adjustment per patient size (includes targeted exams where dose is matched to clinical indication); or iterative reconstruction. COMPARISON: No relevant prior studies available. RADIATION DOSE METRICS: Total DLP (mGy-cm): 1036.98 FINDINGS: Brain: Normal. No hemorrhage. Unremarkable white matter. No mass effect. Cerebral ventricles: No ventriculomegaly. Paranasal sinuses: Visualized sinuses are unremarkable. No fluid levels. Mastoid air cells: Visualized mastoid air cells are well aerated. Bones/joints: Unremarkable. No acute fracture. Soft tissues: Unremarkable. CT/CT head wo con* [id number] IMPRESSION: No acute intracranial abnormality.
[2022-08-15 00:07] LABS: Basophils # 0.1 10^3/uL (0.0-0.1); Basophils % 0.6 %; Eosinophils # 0.2 10^3/uL (0.0-0.8); Eosinophils % 1.8 %; Hematocrit 51.6 % (42.0-52.0); Hemoglobin 17.1 g/dL (11.7-16.6); Lymphocytes # 0.7 10^3/uL (0.8-4.8); Lymphocytes % 8.1 %; Mean Corpuscular HGB Conc 33.1 g/dL (30.0-36.0); Mean Corpuscular Hemoglobin 28.1 pg (28.0-34.0); Mean Corpuscular Volume 84.7 fl (80-94); Mean Platelet Volume 10.8 fL (7.4-10.4); Monocytes # 0.7 10^3/uL (0.2-0.9); Monocytes % 7.8 %; Neutrophils # 6.86 10^3/uL (1.8-7.7); Neutrophils % 81.3 %; Nucleated Red Blood Cells % 0 %; Platelet Count 163 10^3/cmm (130-400); Red Blood Count 6.09 10^6/uL (4.1-5.3); Red Cell Distribution Width 14.5 % (12.1-15.1); White Blood Count 8.4 10^3/uL (4.0-10.0)
[2022-08-15 00:20] LABS: ABG PCO2 43.6 mmHg (35-45); ABG PH Result 7.39 (7.35-7.45); Alveolar-Arterial Oxygen Gradi 2.4 mmHg (5-10); Arterial Blood Gas Hematocrit 54.8 % (42-52); Base Excess ABG 1.2 mmol/L (-2.0-2.0); Blood Gas Allen Test Pos; Blood Gas Operator Identificat Anonymous; Blood Gas Sample Site Radial, right; Blood Gas Sample Type Arterial; Carboxyhemoglobin 1.4 %THgb (0.4-20.1); HCO3 ABG 26.6 mmol/L (22-26); HGB O2 Sat 95.1 % (95-100); Ionized Calcium Level - ABG 1.3 mmol/L (1.1-1.4); Methemoglobin 0.6 % (0.4-1.5); Oxygen Saturation ABG 97.1; PO2 ABG 76.1 mmHg (80.0-100.0); Potassium Level - ABG 3.1 mmol/L (3.5-5.0); Total Hemoglobin 17.9 g/dL (14-18)
[2022-08-15] MEDS: sodium chloride 0.9% 1,000 ML 999 ML IV (00:30)
[2022-08-15 00:33] VITALS: BP 135/98; PULSE 70; O2SAT 96
[2022-08-15 00:36] LABS: Alanine Aminotransferase 24 U/L (0-41); Albumin Level 4.3 g/dL (3.5-5.2); Alkaline Phosphatase 125 U/L (40-130); Anion Gap 15.4 (5-19); Aspartate Amino Transferase 21 U/L (0-40); Blood Urea Nitrogen 26 mg/dL (6-20); Calcium 9.6 mg/dL (8.5-10.5); Carbon Dioxide 24 mmol/L (22-29); Chloride 101 mmol/L (98-107); Globulin 3.1 g/dL (1.3-4.6); Glomerular Filtration Rate 46.1 mL/min (90-130); Glucose 88 mg/dL (65-115); Osmolality Calculated 288 mOsm/kg (285-295); Potassium 3.4 mmol/L (3.5-5.1); Sodium 137 mmol/L (136-145); Thyroid Stimulating Hormone 1.54 uIU/mL (0.27-4.20); Total Bilirubin 0.9 mg/dL (0.15-1.2); Total Protein 7.4 g/dL (6.6-8.7)
[2022-08-15 00:43] LABS: Acetaminophen < 5.0 ug/mL (10-30); Alcohol Level < 10 mg/dL (0-10); Salicylate < 0.3 mg/dL (3-10)
[2022-08-15 00:48] LABS: Magnesium 1.9 mg/dL (1.7-2.3); Phosphorus 3.7 mg/dL (2.5-4.5)
[2022-08-15 00:51] LABS: Ammonia 27 umol/L (16-60)
[2022-08-15 01:38] LABS: C Reactive Protein 20.3 mg/L (0.0-4.9)
[2022-08-15 02:23] LABS: Amphetamines Screen Urine Positive (Negative); Barbiturates Screen Urine Negative (Negative); Benzodiazepines Screen Urine Negative (Negative); Cocaine Screen Urine Negative (Negative); Opiate Screen Urine Negative (Negative); PCP Screen Urine Negative (Negative); THC Screen Urine Negative (Negative)
[2022-08-15] MEDS: potassium chloride ER 20 mEq Tablet 40 MEQ PO (02:24)
[2022-08-15 02:25] VITALS: BP 137/102; PULSE 75; O2SAT 97
[2022-08-15 02:46] LABS: Adenovirus Not Detected (NOT DETECT); Chlamydia Pneumoniae Not Detected (NOT DETECT); Coronavirus 229E,HKU1,NL63,OC4 Not Detected (NOT DETECT); Human Metapneumovirus Not Detected (NOT DETECT); Human Rhinovirus/Enterovirus Not Detected (NOT DETECT); Influenza A Not Detected (NOT DETECT); Influenza A H1 Not Detected (NOT DETECT); Influenza A H1-2009 Not Detected (NOT DETECT); Influenza A H3 Not Detected (NOT DETECT); Influenza B Not Detected (NOT DETECT); Mycoplasma Pneumoniae Not Detected (NOT DETECT); Parainfluenza Virus Type 1 Not Detected (NOT DETECT); Parainfluenza Virus Type 2 Not Detected (NOT DETECT); Parainfluenza Virus Type 3 Not Detected (NOT DETECT); Parainfluenza Virus Type 4 Not Detected (NOT DETECT); Respiratory Syncytial Virus A Not Detected (NOT DETECT); Respiratory Syncytial Virus B Not Detected (NOT DETECT); SARS-COV-2 Not Detected (NOT DETECT)
[2022-08-15 02:54] VITALS: BP 112/91; BP 118/86; BP 126/87; PULSE 79; PULSE 84; PULSE 93
[2022-08-15 03:10] LABS: Add Urine Microscopic? YES; Bilirubin Urine Neg (Negative); Blood Urine 3+ (Negative); Glucose Urine UA Norm (Normal); Ketones Urine Negative (Negative); Leukocyte Esterase Urine 1+ (Negative); Nitrate Urine Negative (Negative); Protein Urine Trace (Negative); Specific Gravity, Urine 1.015 (1.005-1.030); Urine Appearance SL Hazy (CLEAR); Urine Color Yellow (Yellow); Urobilinogen Urine Norm (Negative); pH Urine 6 (5-7)
[2022-08-15 03:11] LABS: Add Urine Culture? Yes; Amorphous Sediment Urine 1+ /hpf; Bacteria Urine 1+ /hpf; RBC Urine 80-100 /hpf (0-2); Squamous Epithelial Cell Urine 0-4 /hpf (0-5); WBC Urine 15-25 /hpf (0-5)
[2022-08-15] MEDS: cefTRIAXone 1,000 MG in sodium chloride 0.9% (plus) 50 ML 100 MG IV (03:40)
[2022-08-15 04:00] VITALS: BP 147/95; PULSE 80; O2SAT 99
--- NOTE | 2022-08-15 06:19 | PC.NURSE ---
Pt here for AMS and was admitted for psych. Per Dr Bruce pt did not need a sitter. Pt was monitored by nurse all night and 1:1 documentation done.
[2022-08-15] MEDS: cephALEXin 500 mg Capsule PO ×4 (11:30→22:14)
[2022-08-15] MEDS: predniSONE 10 mg Tablet PO (13:33)
[2022-08-15 16:24] VITALS: BP 104/71; PULSE 96; RESP 18; TEMP 36.5; O2SAT 98
[2022-08-15 19:38] VITALS: BP 112/73; PULSE 91; RESP 16; TEMP 36.7; O2SAT 95
[2022-08-15] MEDS: pregabalin 100 mg Capsule PO (22:14)
[2022-08-15] MEDS: trazodone 50 mg Tablet PO (22:14)
[2022-08-15] MEDS: buprenorphine-naloxone 4-1 mg Film 2 EACH SUBLINGUAL (22:15)
[2022-08-15] MEDS: hyDROXYzine 25 mg Capsule 50 MG PO (22:18)
[2022-08-16 06:00] VITALS: RESP 18
[2022-08-16] MEDS: predniSONE 10 mg Tablet PO ×2 (09:00→09:25)
--- NOTE | 2022-08-16 09:02 | W.PM.NPUH&PS ---
Providers/Chief Complaint Admitting Physician: Antonino Giraldo MD Primary Care Provider: Aaliyah Hall Chief Complaint: AMS HPI NPU History of Present Illness Jean Pierre Bolanos is a 37 year old male who presented to the emergency department with the following report: Chief Complaint: Altered Mental Status Stated Complaint: AMS Time Seen by Provider: 08/14/22 23:36 History of Present Illness: Mr. Bolanos is a 37-year-old gentleman with history of sarcoidosis, CKD, remote history of alcohol abuse presenting to the emergency department for altered mental status. He reports worsening symptoms over the past week and a half or so. He endorses feeling like his brain is in a fog, at times confusion, unsteadiness, hallucinations. He was at the top of the ladder at work and almost fell due to an unsteady feeling. He notes generalized malaise but no other specific focal symptoms. Intensity symptoms is moderate to severe. Course is worsened. Denies any changes to medications or other known specific provoking events. No other specific changes in health, exacerbating, or alleviating factors identified. Onset (ago): week(s) Severity: severe Consistency of symptoms: Getting Worse Context: other (Sarcoidosis) Associated symptoms: Reports auditory hallucinations and other He was admitted to the neuropsychiatric unit for definitive treatment of those issues. He is not currently on psychiatric medications but has been in the past. He presents today reporting dizziness, mental fog and that he does not feel quite like himself. He has been psychiatrically hospitalized three times in [place], [place] and has received outpatient services in the past such as counseling. He denies tobacco use, had issues with alcohol in the past but is now 1 year sober, denies marijuana, used methamphetamine in the past, and reports having recently taken a diet pill with amphetamines to combat sleep deprivation. He has had drug and alcohol treatment such as substance use groups, has never had a DUI, and denies any drug and alcohol related charges. His mental health issues began presenting two weeks ago and has been slowly progressing over time, beginning before he even took the pill. He endorses not being able to sleep and sudden dizziness, reporting that he was working when he felt really dizzy all of a sudden and nearly fell off of his ladder. He reports that the dizziness kept occurring so he decided to get it checked out, with the most recent time being when he was driving back from [place]. Psychiatric History: As above. Substance Abuse History: As above. Family History: He reports mental health issues on both sides of the family, addiction issues on both sides of the family, and denies any suicide attempts or completions on either side. Developmental History: There were no issues with or , they learned to walk and talk and met their developmental milestones on time, endorsed the need for speech therapy, but denied the need for learning support, emotional support or special education classes. Psychosocial History: He reports his parents were together at his but did not remain together. He is the only product of the same union. His mother has 1 additional child and his father has 2 additional children. He describes his childhood as good and that they liked to gather every Saturday where some drinking occurred. He denies emotional, physical and sexual abuse during her childhood and denies any CYS involvement. He reports a traumatic event when he was 17 years old and he broke his neck while jumping on a trampoline and was paralyzed for 4 days. He endorses flashbacks and nightmares about the event. 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 He endorses being heterosexual with his longest relationship being the current one for over 18 years. He has been once and has been so for 16 years. He has 1 boy and 3 girls from the union at the ages of 17, 16, 13, and 12 years old. He has not been in the and denies a restoration belief system. 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 He lives in a house with his and kids. Legal History: He has been to alf once for a suspended license. Medical History: He is allergic to morphine. He has broken his neck in 2 places when he was 17 years old, has sarcoidosis, and has bad kidneys potentially due to the sarcoidosis causing high calcium levels. He has kidney stones and reports that his kidneys are 41% operational. Meds NPU Home Medications Medication Instructions Recorded Confirmed Last Taken Type buprenorphine 4 mg-naloxone 1 mg 2 film sublingual TID 09/30/21 08/15/22 08/14/22 History sublingual film pregabalin 100 mg capsule (Lyrica) 100 mg PO TID 02/13/22 08/15/22 08/14/22 21:00 History prednisone 10 mg tablet 10 mg PO DAILY 08/15/22 08/15/22 08/14/22 History Allergies Allergy/AdvReac Type Severity Reaction Status Date / Time morphine Allergy Unknown Unknown Verified 08/14/22 16:55 PFSH NPU PFSH: Medical History Alcoholism Drug abuse No pertinent family history Psychiatric care Sarcoidosis Surgical History H/O cervical spine surgery Social History Smoking and tobacco status: never smoked Mental Status Exam MSE Comments: This is a well nourished, well developed white male in hospital scrubs with limited grooming and eye contact. No abnormal movements except for mild psychomotor retardation. Cooperative with exam in mild distress. Speech was slightly decreased rate and volume. Mood described as tired, affect slightly subdued. Thought process, organized. Thought content: patient denies suicidal or homicidal ideation, denies paranoia at first but reports it later with no delusions noted, and denies any auditory or visual hallucinations. Attention and concentration are intact and memory appeared reliable, but none were formally tested. Insight and judgment are fair. Impulse control is fair. Vitals/I&O/Wt Last Vital Signs Temp 98.0 F 08/15/22 19:38 Pulse 91 08/15/22 19:38 Resp 18 08/16/22 06:00 BP 112/73 08/15/22 19:38 Pulse Ox 95 08/15/22 19:38 O2 Del Method 08/15/22 19:38 Weight last 48 hrs Weight 64.41 kg Data NPU 08/14/22 23:59 08/14/22 23:59 Micro: Microbiology 08/15/22 01:57 Urine Culture - Preliminary Urine,Clean Catch Microbiology 08/15/22 01:57 Urine,Clean Catch Urine Culture - Preliminary A&P Assessment and plan (1) Altered mental status: (2) Hallucinations: (3) Depression: (4) Psychosis: Plan This is a 37 year old white male with genetic loading for mental health and addiction issues who presents with episodes of dizziness increasing in severity over the past two weeks who endorses recent use of amphetamines and an openness towards starting medications as well as endorsing that he wants to be discharged as he is missing days of work. We discussed the risks, benefits and alternatives of starting medications and they understood and agreed to proceed as is documented in this note. 1. Continue current medications, except start Abilify 10 mg p.o. every morning. 2. Encourage individual, group and milieu therapy 3. Continue q-15 minute check for safety 4. Recommend sober living treatment at the highest level of care to which the patient is willing to commit. Involuntary Hold Information 96 Hour Hold: 96 Hour Involuntary Admission: No Attestations NPU Medical Necessity Statement*: Inpatient hospitalization is medically necessary and the clinically appropriate intervention at this time. We will monitor medications and make changes as indicated. Patient will be in the hospital for over two midnights. Likely length of stay is three to five days. Coding Level of Care Code Acute Code for Chg Fwd Diagnoses Altered mental status R41.82 Hallucinations R44.3 Depression F32.A Psychosis F29
[2022-08-16] MEDS: pregabalin 100 mg Capsule PO ×3 (09:24→21:40)
[2022-08-16] MEDS: cephALEXin 500 mg Capsule PO ×4 (09:25→21:39)
[2022-08-16] MEDS: buprenorphine-naloxone 4-1 mg Film 2 EACH SUBLINGUAL ×3 (09:25→21:40)
[2022-08-16] MEDS: OLANZapine 5 mg ODT PO (10:20)
[2022-08-16 14:00] VITALS: BP 112/73; PULSE 91; RESP 18; TEMP 36.7; O2SAT 95
[2022-08-16 15:14] VITALS: BP 110/69; PULSE 88; RESP 18; TEMP 36.6; O2SAT 97
[2022-08-16 19:49] VITALS: BP 102/67; PULSE 93; RESP 18; O2SAT 96
[2022-08-16] MEDS: hyDROXYzine 25 mg Capsule 50 MG PO (21:40)
[2022-08-16] MEDS: trazodone 50 mg Tablet PO (21:40)
[2022-08-17 05:50] VITALS: BP 117/81; PULSE 92; RESP 18; TEMP 36.7; O2SAT 97
[2022-08-17] MEDS: pregabalin 100 mg Capsule PO ×3 (09:09→19:46)
[2022-08-17] MEDS: cephALEXin 500 mg Capsule PO ×4 (09:09→19:45)
[2022-08-17] MEDS: predniSONE 10 mg Tablet PO (09:10)
[2022-08-17] MEDS: buprenorphine-naloxone 4-1 mg Film 2 EACH SUBLINGUAL ×3 (09:10→19:46)
[2022-08-17] MEDS: ARIPiprazole 10 mg Tablet PO (09:11)
[2022-08-17 14:00] VITALS: BP 108/70; PULSE 72; RESP 17; TEMP 36.7; O2SAT 98
--- NOTE | 2022-08-17 19:17 | W.PM.NPUPNS ---
Subjective NPU Subjective: Presented today reporting that the Abilify was helpful. He reports that it did seem to make him tired throughout the day and we discussed monitoring this over the next couple days and considering moving it to bedtime if it seems that somnolence or lethargy are continuing. He reports that overall he feels a little better and denied any new issues. Mental Status Exam MSE Comments: This is a well nourished, well developed white male in hospital scrubs with limited grooming and eye contact. No abnormal movements except for mild psychomotor retardation. Cooperative with exam in mild distress. Speech was slightly decreased rate and volume. Mood described as tired, affect slightly subdued. Thought process, organized. Thought content: patient denies suicidal or homicidal ideation, denies paranoia at first but reports it later with no delusions noted, and denies any auditory or visual hallucinations. Attention and concentration are intact and memory appeared reliable, but none were formally tested. Insight and judgment are fair. Impulse control is fair. Vitals/I&O/Wt Last Vital Signs Temp 98.6 F 08/17/22 21:08 Pulse 111 H 08/17/22 21:08 Resp 18 08/17/22 21:08 BP 102/64 08/17/22 21:08 Pulse Ox 95 08/17/22 21:08 O2 Del Method 08/17/22 21:08 Data NPU 08/14/22 23:59 08/14/22 23:59 Micro: Microbiology 08/15/22 01:57 Urine Culture - Final Urine,Clean Catch Microbiology 08/15/22 01:57 Urine,Clean Catch Urine Culture - Final A&P Assessment and plan (1) Altered mental status: (2) Hallucinations: (3) Depression: (4) Psychosis: Plan This is a 37 year old white male with genetic loading for mental health and addiction issues who presents with episodes of dizziness increasing in severity over the past two weeks who endorses recent use of amphetamines and an openness towards starting medications as well as endorsing that he wants to be discharged as he is missing days of work. We discussed the risks, benefits and alternatives of starting medications and they understood and agreed to proceed as is documented in this note. 1. Continue current medications. Started Abilify 10 mg p.o. every morning. 2. Encourage individual, group and milieu therapy 3. Continue q-15 minute check for safety 4. Recommend sober living treatment at the highest level of care to which the patient is willing to commit. Involuntary Hold Information 96 Hour Hold: 96 Hour Involuntary Admission: No Attestations NPU Medical Necessity Statement*: Inpatient hospitalization is medically necessary and the clinically appropriate intervention at this time. We will monitor medications and make changes as indicated. Likely length of stay is 2-4 days. Coding Level of Care Code Acute Code for g Fwd Diagnoses Altered mental status R41.82 Hallucinations R44.3 Depression F32.A Psychosis F29
[2022-08-17 21:08] VITALS: BP 102/64; PULSE 111; RESP 18; TEMP 37; O2SAT 95
[2022-08-18] MEDS: cephALEXin 500 mg Capsule PO ×4 (08:37→20:41)
[2022-08-18] MEDS: ARIPiprazole 10 mg Tablet PO (08:37)
[2022-08-18] MEDS: buprenorphine-naloxone 4-1 mg Film 2 EACH SUBLINGUAL ×3 (08:38→20:41)
[2022-08-18] MEDS: predniSONE 10 mg Tablet PO (08:39)
[2022-08-18] MEDS: pregabalin 100 mg Capsule PO ×3 (08:39→20:41)
--- NOTE | 2022-08-18 10:20 | W.PM.NPUPNS ---
Subjective NPU Subjective: Presented today reporting that there has been improvement he feels like he will be ready to go back to work on Saturday and so we began discussion about discharge tomorrow. We had a fairly lengthy discussion about making sure that he is able to get the Abilify and we discussed arrangements as to how we will make that occur. He is still having some somnolence from the medication so we will start giving it at bedtime. Mental Status Exam MSE Comments: This is a well nourished, well developed white male in hospital scrubs with limited grooming and eye contact. No abnormal movements except for mild psychomotor retardation. Cooperative with exam in mild distress. Speech was slightly decreased rate and volume. Mood described as tired, affect slightly subdued. Thought process, organized. Thought content: patient denies suicidal or homicidal ideation, and reported or noted, and denies any auditory or visual hallucinations. Attention and concentration are intact and memory appeared reliable, but none were formally tested. Insight and judgment are fair. Impulse control is fair. Vitals/I&O/Wt Last Vital Signs Temp 98.6 F 08/17/22 21:08 Pulse 111 H 08/17/22 21:08 Resp 18 08/17/22 21:08 BP 102/64 08/17/22 21:08 Pulse Ox 95 08/17/22 21:08 O2 Del Method 08/17/22 21:08 Data NPU 08/14/22 23:59 08/14/22 23:59 Micro: Microbiology 08/15/22 01:57 Urine Culture - Final Urine,Clean Catch Microbiology 08/15/22 01:57 Urine,Clean Catch Urine Culture - Final A&P Assessment and plan (1) Altered mental status: (2) Hallucinations: (3) Depression: (4) Psychosis: Plan This is a 37 year old white male with genetic loading for mental health and addiction issues who presents with episodes of dizziness increasing in severity over the past two weeks who endorses recent use of amphetamines and an openness towards starting medications as well as endorsing that he wants to be discharged as he is missing days of work. We discussed the risks, benefits and alternatives of starting medications and they understood and agreed to proceed as is documented in this note. 1. Continue current medications. Started Abilify 10 mg p.o. every morning switched to bedtime. 2. Encourage individual, group and milieu therapy 3. Continue q-15 minute check for safety 4. Recommend sober living treatment at the highest level of care to which the patient is willing to commit. 5. Tentative plan for discharge tomorrow. Involuntary Hold Information 96 Hour Hold: 96 Hour Involuntary Admission: No Attestations NPU Medical Necessity Statement*: Inpatient hospitalization is medically necessary and the clinically appropriate intervention at this time. We will monitor medications and make changes as indicated. Likely length of stay is 1-3 days. Coding Level of Care Code Acute Code for Chg Fwd Diagnoses Altered mental status R41.82 Hallucinations R44.3 Depression F32.A Psychosis F29
[2022-08-18 15:43] VITALS: BP 113/72; PULSE 79; RESP 18; TEMP 36.8; O2SAT 96
[2022-08-18] MEDS: trazodone 50 mg Tablet PO (20:43)
[2022-08-18] MEDS: hyDROXYzine 25 mg Capsule 50 MG PO (20:43)
[2022-08-18 21:11] VITALS: BP 128/84; PULSE 88; RESP 18; TEMP 36.4; O2SAT 97
--- NOTE | 2022-08-19 06:47 | P.NPUDS_ITS ---
Diagnoses at Discharge Discharge Diagnosis (1) Altered mental status: Status: Resolved (2) Hallucinations: Status: Resolved (3) Depression: Status: Acute (4) Psychosis: Status: Acute Reason for Visit Reason for Visit: AMS Brief History: History of Present Illness Jean Pierre Bolanos is a 37 year old male who presented to the emergency department with the following report: Chief Complaint: Altered Mental Status Stated Complaint: AMS Time Seen by Provider: 08/14/22 23:36 History of Present Illness: Mr. Bolanos is a 37-year-old gentleman with history of sarcoidosis, CKD, remote history of alcohol abuse presenting to the emergency department for altered mental status. He reports worsening symptoms over the past week and a half or so. He endorses feeling like his brain is in a fog, at times confusion, unsteadiness, hallucinations. He was at the top of the ladder at work and almost fell due to an unsteady feeling. He notes generalized malaise but no other specific focal symptoms. Intensity symptoms is moderate to severe. Course is worsened. Denies any changes to medications or other known specific provoking events. No other specific changes in health, exacerbating, or alleviating factors identified. Onset (ago): week(s) Severity: severe Consistency of symptoms: Getting Worse Context: other (Sarcoidosis) Associated symptoms: Reports auditory hallucinations and other He was admitted to the neuropsychiatric unit for definitive treatment of those issues. He is not currently on psychiatric medications but has been in the past. He presents today reporting dizziness, mental fog and that he does not feel quite like himself. He has been psychiatrically hospitalized three times in [place], [place] and has received outpatient services in the past such as counseling. He denies tobacco use, had issues with alcohol in the past but is now 1 year sober, denies marijuana, used methamphetamine in the past, and reports having recently taken a diet pill with amphetamines to combat sleep deprivation. He has had drug and alcohol treatment such as substance use groups, has never had a DUI, and denies any drug and alcohol related charges. His mental health issues began presenting two weeks ago and has been slowly progressing over time, beginning before he even took the pill. He endorses not being able to sleep and sudden dizziness, reporting that he was working when he felt really dizzy all of a sudden and nearly fell off of his ladder. He reports that the dizziness kept occurring so he decided to get it checked out, with the most recent time being when he was driving back from [place]. Psychiatric History: As above. Substance Abuse History: As above. Family History: He reports mental health issues on both sides of the family, addiction issues on both sides of the family, and denies any suicide attempts or completions on either side. Developmental History: There were no issues with or , they learned to walk and talk and met their developmental milestones on time, endorsed the need for speech the rapy, but denied the need for learning support, emotional support or special education classes. Psychosocial History: He reports his parents were together at his but did not remain together. He is the only product of the same union. His mother has 1 additional child and his father has 2 additional children. He describes his childhood as good and that they liked to gather every Saturday where some drinking occurred. He denies emotional, physical and sexual abuse during her childhood and denies any [employer] involvement. He reports a traumatic event when he was 17 years old and he broke his neck while jumping on a trampoline and was paralyzed for 4 days. He endorses flashbacks and nightmares about the event. 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 He endorses being heterosexual with his longest relationship being the current one for over 18 years. He has been once and has been so for 16 years. He has 1 boy and 3 girls from the union at the ages of 17, 16, 13, and 12 years old. He has not been in the and denies a zoroastrianism belief system. 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 He lives in a house with his and kids. Legal History: He has been to senior living once for a suspended license. Medical History: He is allergic to morphine. He has broken his neck in 2 places when he was 17 years old, has sarcoidosis, and has bad kidneys potentially due to the sarcoidosis causing high calcium levels. He has kidney stones and reports that his kidneys are 41% operational. Hospital Course Hospital Course He slowly acclimated to the individual, group and milieu therapies provided.? He presented with longstanding mental health issues as well as addiction issues. This likely represented a thought disorder either independent of, caused by or exacerbated by methamphetamine. He is open to the initiation of Abilify 10 mg p.o. daily which was ultimately moved to bedtime secondary to some lethargy/tiredness seeming to be connected to medication. He had significant improvement with the medication vital signs of stress about possibility of not making it to work and some work with his significant other for support from me to transition from inpatient to outpatient. He worked with the treatment team o n appropriate discharge planning and aftercare resources and was able to contract for safety outside of the hospital prior to discharge.? During the hospitalization, patient had routine laboratory studies which were within normal limits except for few outliers.? Additionally there was a general medical evaluation which was also within normal limits and revealed no new acute processes. Discharge Summary: At the time of discharge, he denied lethality and psychosis was resolving.? Mood and anxiety were well managed.? Patient endorsed a plan to avoid all drugs of abuse and follow-up with the aftercare recommendations of the treatment team.? Patient was evaluated and deemed to be absent credible lethality, and had achieved the maximum benefit from an inpatient hospitalization, so was discharg ed. Involuntary Hold Information 96 Hour Hold: 96 Hour Involuntary Admission: No Mental Status Exam MSE Comments: This is a well nourished, well developed white male in hospital scrubs with limited grooming and eye contact. No abnormal movements except for mild psychomotor retardation. Cooperative with exam in no acute distress. Speech was slightly decreased rate and volume. Mood described as tired, but better, affect slightly subdued but improving. Thought process, organized. Thought content: patient denies suicidal or homicidal ideation, and reported or noted, and denies any auditory or visual hallucinations. Attention and concentration are intact and memory appeared reliable, but none were formally tested. Insight and judgment are fair. Impulse control is fair. Discharge Data Studies Completed and Pending: Completed Studies During Hospitalization Category Date Time Status CT head wo con* [id number] Stat Cat Scan 08/14/22 23:51 Completed XR chest 1V yesenia ble [id number] Stat Exams 08/14/22 23:51 Completed Radiology Impressions Chest X-Ray 08/14/22 23:51 IMPRESSION: 1. No acute disease. 2. Persistent left midlung pleural-based density of unclear etiology. Nonemergent CT chest follow-up would better assess this lesion. Head CT 08/14/22 23:51 IMPRESSION: No acute intracranial abnormality. Laboratory Results WBC 8.4 10^3/uL (4.0- 10.0) 08/14/22 23:59 RBC 6.09 10^6/uL (4.1 -5.3) H 08/14/22 23:59 Hgb 17.1 g/dL (11.7-1 6.6) H 08/14/22 23:59 Hct 51.6 % (42.0-52.0 ) 08/14/22 23:59 MCV 84.7 fl (80-94) 08/14/22 23:59 MCH 28.1 pg (28.0-34. 0) 08/14/22 23: MCHC 33.1 g/dL (30.0-3 6.0) 08/14/22 23: RDW 14.5 % (12.1-15.1 ) 08/14/22 23:59 Plt Count 163 10^3/cmm (130 -400) 08/14/22 23:59 MPV 10.8 fL (7.4-10.4 ) H 08/14/22 23:59 Neut % (Auto) 81.3 % 08/14/22 23:59 Lymph % (Auto) 8.1 % 08/14/22 23:59 [place] % (Auto) 7.8 % 08/14/22 23:59 Eos % (Auto) 1.8 % 08/14/22 23:59 Baso % (Auto) 0.6 % 08/14/22 23:59 Neut # (Auto) 6.86 10^3/uL (1.8 -7.7) 08/14/22 23:59 Lymph # (Auto) 0.7 10^3/uL (0.8- 4.8) L 08/14/22 23:59 [place] # (Auto) 0.7 10^3/uL (0.2- 0.9) 08/14/22 23:59 Eos # (Auto) 0.2 10^3/uL (0.0- 0.8) 08/14/22 23:59 Baso # (Auto) 0.1 10^3/uL (0.0- 0.1) 08/14/22 23:59 Nucleated RBC % (a uto) 0 % 08/14/22 23: Nucleated RBCs # 0.0 /100WBC 08/14/22 23:59 Specimen Type Arterial 08/14/22 00:04 Sample Site Radial, right 08/14/22 00:04 ABG pH 7.39 (7.35-7.45) 08/14/22 00:04 ABG pCO2 43.6 mmHg (35-45) 08/14/22 00:04 ABG pO2 76.1 mmHg (80.0-1 00.0) L 08/14/22 00:04 ABG HCO3 26.6 mmol/L (22-2 6) H 08/14/22 00:04 ABG O2 Saturation 97.1 08/14/22 00:04 ABG Base Excess 1.2 mmol/L (-2.0- 2.0) 08/14/22 00:04 [place] Test Pos 08/14/22 00:04 A-a O2 Gradient 2.4 mmHg (5-10) L 08/14/22 00:04 Hematocrit 54.8 % (42-52) H 08/14/22 00:04 Hgb O2 Saturation 95.1 % (95-100) 08/14/22 00:04 Carboxyhemoglobin 1.4 %THgb (0.4-20 .1) 08/14/22 00:04 Methemoglobin 0.6 % (0.4-1.5) 08/14/22 00:04 Total Hemoglobin 17.9 g/dL (14-18) 08/14/22 00:04 Sodium 139.0 mmol/L (131 -143) 08/14/22 00:04 Potassium 3.1 mmol/L (3.5-5 .0) L 08/14/22 00:04 Glucose 88.0 mg/dL (70-11 5) 08/14/22 00:04 Ionized Calcium 1.3 mmol/L (1.1-1 .4) 08/14/22 00:04 O2 Delivery Device None 08/14/22 00:04 FiO2 21.0 % 08/14/22 00:04 Integration Technician ID Anonymous 08/14/22 00:04 Sodium 137 mmol/L (136-1 45) 08/14/22 23:59 Potassium 3.4 mmol/L (3.5-5 .1) L 08/14/22 23:59 Chloride 101 mmol/L (98-10 7) 08/14/22 23:59 Carbon Dioxide 24 mmol/L (22-29) 08/14/22 23:59 Anion Gap 15.4 (5-19) 08/14/22 23:59 BUN 26 mg/dL (6-20) H 08/14/22 23:59 Creatinine 1.7 mg/dL (0.7-1. 2) H 08/14/22 23:59 GFR Calculation 46.1 mL/min (90-1 30) L 08/14/22 23:59 Glucose 88 mg/dL (65-115) 08/14/22 23:59 Calculated Osmolal ity 288 mOsm/kg (285- 295) 08/14/22 23:59 Calcium 9.6 mg/dL (8.5-10 .5) 08/14/22 23:59 Phosphorus 3.7 mg/dL (2.5-4. 5) 08/15/22 00:35 Magnesium 1.9 mg/dL (1.7-2. 3) 08/15/22 00:35 Total Bilirubin 0.9 mg/dL (0.15-1 .2) 08/14/22 23:59 AST 21 U/L (0-40) 08/14/22 23:59 ALT 24 U/L (0-41) 08/14/22 23:59 Alkaline Phosphata se 125 U/L (40-130) 08/14/22 23:59 Ammonia 27 umol/L (16-60) 08/15/22 00:31 C-Reactive Protein 20.3 mg/L (0.0-4. 9) H 08/14/22 23:59 Total Protein 7.4 g/dL (6.6-8.7 ) 08/14/22 23:59 Albumin 4.3 g/dL (3.5-5.2 ) 08/14/22 23:59 Globulin 3.1 g/dL (1.3-4.6 ) 08/14/22 23:59 TSH 1.54 uIU/mL (0.27 -4.20) 08/14/22 23:59 Urine Color Yellow (Yellow) 08/15/22 01:57 Urine Appearance Sl hazy (CLEAR) A 08/15/22 01:57 Urine pH 6 (5-7) 08/15/22 01:57 Ur Specific Gravit y 1.015 (1.005-1.0 30) 08/15/22 01:57 Urine Protein Trace (Negative) 08/15/22 01:57 Urine Glucose (UA) Norm (Normal) 08/15/22 01:57 Urine Ketones Negative (Negati ve) 08/15/22 01:57 Urine Blood 3+ (Negative) H 08/15/22 01:57 Urine Nitrate Negative (Negati ve) 08/15/22 01:57 Urine Bilirubin Neg (Negative) 08/15/22 01:57 Urine Urobilinogen Norm mg/dL (Negat nichelle) 08/15/22 01:57 Ur Leukocyte [place] 1+ (Negative) H 08/15/22 01:57 Urine RBC 80-100 /hpf (0-2) H 08/15/22 01:57 Urine WBC 15-25 /hpf (0-5) H 08/15/22 01:57 Ur Squamous Epith Cells 0-4 /hpf (0-5) H 08/15/22 01:57 Amorphous Sediment 1+ /hpf 08/15/22 01:57 Urine Bacteria 1+ /hpf (NONE) H 08/15/22 01:57 Salicylates < 0.3 mg/dL (3-10 ) L 08/14/22 23:59 Urine Opiates Scre en Negative ng/mL (N egative) 08/15/22 01:57 Acetaminophen < 5.0 ug/mL (10-3 0) L 08/14/22 23:59 Ur Barbiturates Sc reen Negative ng/mL (N egative) 08/15/22 01:57 Ur Phencyclidine S crn Negative ng/mL (N egative) 08/15/22 01:57 Ur Amphetamines Sc reen Positive ng/mL (N egative) H 08/15/22 01:57 U Benzodiazepines Scrn Negative ng/mL (N egative) 08/15/22 01:57 Urine Cocaine Scre en Negative ng/mL (N egative) 08/15/22 01:57 U Marijuana (THC) Screen Negative ng/mL (N egative) 08/15/22 01:57 Ethyl Alcohol < 10 mg/dL (0-10) 08/14/22 23:59 Coronavirus 229E ( PCR) Not detected (NO T DETECT) 08/15/22 01:00 SARS-CoV-2 (PCR) Not detected (NO T DETECT) 08/15/22 01:00 Vitals: Last Vital Signs Temp 97.5 F L 08/18/22 21:11 Pulse 88 08/18/22 21:11 Resp 18 08/18/22 21:11 BP 128/84 08/18/22 21:11 Pulse Ox 97 08/18/22 21:11 O2 Del Method 08/18/22 15:43 Discharge Plan Discharge Patient Disposition: Home Condition: Stable Prescriptions: New aripiprazole 10 mg Tablet 10 mg PO DAILY 30 Days Qty: 30 1RF Continued pregabalin [Lyrica] 100 mg capsule 100 mg PO TID buprenorphine-naloxone 4-1 mg film 2 film sublingual TID prednisone 10 mg tablet 10 mg PO DAILY No Action hydrocodone-acetaminophen 5-325 mg tablet 1 tab PO Q6H PRN (Reason: pain) 4 Days Qty: 16 0RF ibuprofen 800 mg tablet 800 mg PO Q8H PRN (Reason: pain) Qty: 60 0RF neomycin-polymyxin B-dexameth [Maxitrol] 3.5 mg/g-10,000 unit/g-0.1 % ointment 1 applic ophthalmic (eye) TID Qty: 3.5 0RF Rx Instructions: space evenly during waking hours Discharge Orders: Discharge Order (Routine); Ordered 08/19/22 Ordered By: Antonino Giraldo Referrals: Aaliyah Hall PA-C [Primary Care Provider] - Discharge Diet: Regular Discharge Activity: Resume usual activity Patient Instructions: Cephalexin (By mouth) (Bio-Cef, Keflex), Aripiprazole (By mouth) (Abilify, Abilify Discmelt), Altered Mental Status (GEN), Opioid Safety Discharge Attestations NPU Time Spent in Discharge Care*: less than 30 min Specific Discharge Activities: Specific discharge activities: educating patient, discussing with case coordinator/social workers/dc planners, documenting/other paperwork and evaluating patient/reviewing data Coding Level of Care Code Acute Chg FW DC note Diagnoses Altered mental status R41.82 Hallucinations R44.3 Depression F32.A Psychosis F29
[2022-08-19] MEDS: cephALEXin 500 mg Capsule PO (10:35)
[2022-08-19] MEDS: pregabalin 100 mg Capsule PO (10:35)
[2022-08-19] MEDS: ARIPiprazole 10 mg Tablet PO (10:36)
[2022-08-19] MEDS: buprenorphine-naloxone 4-1 mg Film 2 EACH SUBLINGUAL (10:36)
[2022-08-19] MEDS: predniSONE 10 mg Tablet PO (10:36)
[2022-08-19 10:42] VITALS: BP 112/76; PULSE 88; RESP 18; TEMP 36.3; O2SAT 96
[2022-08-19 12:40] VITALS: BP 112/76; PULSE 88; RESP 18; TEMP 36.3; O2SAT 96
== END 2022-08-19 12:42 | disposition home or self-care (01) | DRG 897 ==
LOC: ER 08-15 03:27 → ER IP 08-15 10:13 → NP 08-15 14:41
PROVIDERS: Admitting Provider Psychiatry & Neurology Psychiatry; Emergency Provider Emergency Medicine; PCP Physician Assistant; Visit Provider Psychiatry & Neurology Psychiatry
DX: F15.151 Other stimulant abuse with stimulant-induced psychotic disorder with hallucinations (principal); F32.A Depression, unspecified; D86.9 Sarcoidosis, unspecified; N18.9 Chronic kidney disease, unspecified; F10.11 Alcohol abuse, in remission; Z88.5 Allergy status to narcotic agent; Z79.891 Long term (current) use of opiate analgesic; F15.10 Other stimulant abuse, uncomplicated
CPT/HCPCS: 36600; 70450; 71045; 80051; 80053; 80306; 80307; 81001; 82140; 82330; 82805; 83735; 84100; 84443; 85025; 86140; 87086; 87635; 93005; 96365; 97165; 99285; J0573; J0696; J7030; J7512